=== PATIENT | male | born 1955 | race Caucasian/White ===

== ENCOUNTER → 2017-08-11 15:40 | Outpatient (CLI) | payer OTHER, SELFPAY ==
--- NOTE | 2017-08-11 15:40 | DT_ITS ---
This patient was seen during an EMR downtime August 04, 2017 - August 11, 2017. This patient may have a combination of paper and electronic documentation or all paper documentation. All documentation is viewable within the e-chart portion of [facility] for each patient visit.
[2017-08-11 17:00] LABS: PSA,Total- Diagnostic < 0.01 ng/mL (0.0-4.0)
== END ==
PROVIDERS: Family Provider Family Medicine Geriatric Medicine; PCP Family Medicine Geriatric Medicine; Visit Provider Urology
DX: C61 Malignant neoplasm of prostate (principal)
CPT/HCPCS: 36415; 84153

== ENCOUNTER → 2018-02-10 08:00 | Outpatient (CLI) | payer OTHER, SELFPAY ==
[2018-02-10 08:52] LABS: PSA,Total- Diagnostic < 0.01 ng/mL (0.0-4.0)
--- OUTSIDE RECORDS SUMMARY | 2018-03-29 06:02 | XMS RPT_ITS ---
:1955 Author Organization [facility] Care Team Providers Name Role Phone Yuliana Fleming Attending Unavailable Yuliana Fleming Referring Unavailable Ke, Nick Chi Primary Care Unavailable Marvel Ramirez Attending Unavailable JamesMarvel Referring Unavailable Ke, Nick Chi Primary Care Unavailable Marvel Ramirez Attending Unavailable JamesMarvel Referring Unavailable Ke, Nick Chi Primary Care Unavailable Ke, Nick Chi Attending Unavailable Ke, Nick Chi Primary Care Unavailable Ke, Nick Chi Referring Unavailable PROBLEMS PROBLEMS DATE TYPE CONDITION / CODE ATTENDING STATUS SOURCE 08/28/2017 Unknown C61 - Malignant Marvel Ramirez [employer] neoplasm of [facility] prostate / Hospital C61(ICD-10) Repository PROCEDURES PROCEDURES No Procedure Records FoundRESULTS RESULTS SPINE LUMBAR Observed: 02/23/2018 Status: F Source: [place] (ROUTINE) 2:22 PM [facility] REPOSITORY [facility] Imaging Services [address] [place] [address] Spine Lumbar (Routine) MR#: [id number] Acct: [id number] Name: EDITH ORTIZ Rep #: [id number] : 1955 M 62 From: Deborah Guzman MD PCP: Ke MAGALLANES,Nick Lopez Status: REG CLI Study: Spine Lumbar (Routine) Date of Exam: 02/23/18 Exam# [id number] Ordering Dr: Marvel Ramirez MD STUDY: MRI LUMBAR SPINE WITHOUT CONTRAST REASON FOR EXAM: Male, 62 years old. Low back pain, renal mass. TECHNIQUE: Standardized fat and water weighted pulse sequences were obtained in the sagittal and axial planes. COMPARISON: None FINDINGS: T12-L1: Normal endplates. Normal disc height, hydration and morphology. Normal bilateral facet joints. Normal central canal and bilateral lateral recesses. Normal bilateral intervertebral neural foramina. Normal lumbar lordosis. There is mild dextroscoliosis. Normal conus medullaris that terminates at the T12 level. Marrow signal shows no evidence of acute fracture or neoplastic infiltrate. L1-2: Normal endplates. Normal disc height, hydration and morphology. Normal bilateral facet joints. Normal central canal and bilateral lateral recesses. Normal bilateral intervertebral neural foramina. L2-3: Disc dehydration and moderate disc space narrowing. There is a moderate spondylotic bar. There is mild canal stenosis due to spondylosis, mild facet and ligamentous hypertrophy. There is moderate left foraminal stenosis due to spurring. L3-4: Disc dehydration and marked disc space narrowing. There is a mild spondylotic bar. There is facet and ligamentous hypertrophy. There is significant encroachment of the right lateral recess and moderate right foraminal encroachment due to spurring. There is mild left foraminal encroachment due to spurring. L4-5: Disc dehydration and mild disc space narrowing. Normal central canal. There is mild facet hypertrophy. There is moderate right foraminal stenosis due to spurring and facet hypertrophy. L5-S1: Normal endplates. . Disc dehydration Normal bilateral facet joints. Normal central canal and bilateral lateral recesses. Normal bilateral intervertebral neural foramina. Normal visualized sacral ala. Normal visualized paraspinous soft tissue structures. A right renal mass is noted consistent with clinical history. MRI/Spine Lumbar (Routine) IMPRESSION: 1. Mild L2-3 canal stenosis. 2. Foraminal stenosis at L2-3, L3-4, and L4-5. 3. Mild dextroscoliosis. 4. Degenerative changes are detailed above. 5. Known right renal mass. Electronically Signed: Deborah Guzman MD at 18:49 EST Tel , Service support , CC: Marvel Ramirez MD; Nick Dempsey MD Assistant Professor Of Geography: Signed ABDOMEN/PELVIS WITH Observed: 02/13/2018 Status: F Source: [place] CONTRAST 12:35 PM [facility] REPOSITORY [facility] Imaging Services [address] [place] [address] Abdomen/Pelvis WITH Contrast MR#: [id number] Acct: [id number] Name: EDITH ORTIZ Rep #: [id number] : 1955 M 62 From: Triston Johnston MD PCP: Ke MAGALLANES,Nick Lopez Status: REG CLI Study: Abdomen/Pelvis WITH Contrast Date of Exam: 02/13/18 Exam# [id number] Ordering Dr: Nick Dempsey MD ADDENDUM by Triston Johnston MD on 02/13/18 at 1542 ADDENDUM This is an addendum report. There is a 5.2 cm x 4.5 cm x 5.1 cm inhomogeneously enhancing solid mass in the inferior medial aspect of the right kidney. A neoplastic process should be ruled out. Electronically Signed: Triston Johnston MD at 15:42 EST Tel [phone], Service support , 02/13/18 1542 Date cc: Nick Dempsey MD * Signed ADDENDUM by Triston Johnston MD on 02/13/[address]/Abdomen/Pelvis WITH Contrast 02/13/18 1549 Date cc: Nick Dempsey MD * Signed STUDY: CT ABDOMEN AND PELVIS WITH CONTRAST REASON FOR EXAM: Male, 62 years old. Right-sided abdominal pain with radiation. Patient has a history of a prostate cancer. RADIATION DOSAGE (If Supplied By Facility): CTDIvol = ( 16.33 ) mGy, DLP = ( 1252.88 ) mGycm TECHNIQUE: Transaxial images were obtained from the dome of the diaphragm to the symphysis pubis with oral contrast. 100mL ml of Isovue 300 contrast was administered. Sagittal and coronal images were reconstructed. Individualized dose optimization techniques were used for this CT. COMPARISON: Comparison is made with prior study dated on October 30, 2015. FINDINGS: Minimal degree of increased markings at the lung bases suggestive of linear scarring and/or atelectasis. The visualized portions of the heart are within normal limits. There is decreased attenuation of the liver consistent with steatosis. Slightly distended gallbladder. Normal spleen. Normal pancreas. Normal bilateral adrenal glands. Normal right kidney. Normal left kidney. Normal visualized stomach. Normal small intestine. There are scattered colonic diverticula consistent with diverticulosis. The appendix is visualized and appears normal. There is scattered atherosclerotic calcification of the abdominal aorta, without a demonstrated aneurysm. Normal inferior vena cava. Normal retroperitoneum. Normal urinary bladder. The patient is status post prostatectomy. Small benign-appearing inguinal lymph nodes. There is a small umbilical hernia containing fat. The neck of the hernia measures 1.7 cm. There are diffuse degenerative changes of the visualized lumbar spine. CT/Abdomen/Pelvis WITH Contrast IMPRESSION: Fatty infiltration of the liver. Stable umbilical hernia. Status post prostatectomy. Electronically Signed: Triston Johnston MD at 15:25 EST Tel [phone], Service support , CC: Nick Dempsey MD Assistant Professor Of Geography: Signed CBC W/DIFF, AUTOMATED Collected: 02/13/2018 Status: F Source: [place] 12:01 PM [facility] REPOSITORY TYPE CODE TESTS RESULT OUT OF RANGE REFERENCE UNITS LAB L100.1000 4.4-11.0 K/mm3 Normal WBC 5.5 LAB L100.1200 4.6-6.2 M/mm3 Normal RBC 4.73 LAB L100.1300 13.0-16.5 g/dl Normal HGB 14.2 LAB L100.1400 40-54 % Normal HCT 42.6 LAB L100.1500 80-94 fL Low MCV 9.1 LAB L100.1600 27.0-32.0 pg Normal MCH 30.0 LAB L100.1700 32-36 g/gl Normal MCHC 33.3 LAB L100.1810 11.6-14.6 % Normal RDW CV 12.7 LAB L100.1820 35.1-43.9 fl Normal RDW SD 41.3 LAB L100.1900 150-450 K/mm3 Normal PLT 249 LAB L100.2000 6.2-12.0 fl Normal MPV 10.1 LAB L100.2100 47-70 % Normal NEUT% 56.5 LAB L100.2200 19-41 % Normal LY% 31.9 LAB L100.2300 0-10 % Normal MONO% 9.4 LAB L100.2400 0-5 % Normal EO% 1.5 LAB L100.2500 0-1 % Normal BASO% 0.5 LAB L100.2550 0.0-0.9 % Normal IM GRAN % 0.200 Result Comment: IG% - Immature Granulocytes (promyelocytes, myelocytes and metamyelocytes) > 1% indicates that a LEFT SHIFT is Present. LAB L100.2620 2.0-7.7 X10 3/uL Normal Absolute Neut 3.1 LAB L100.2720 0.83-4.51 X10 3/ul Normal Absolute Lymph 1.76 LAB L100.3100 MANUAL DIFF CELLS Normal COUNTED 0.01 Performed By: #### L100.0100 #### [facility] [address] [place], [place], [address] COMPREHENSIVE METABOLIC Collected: 02/13/2018 Status: F Source: [place] 12:01 PM [facility] REPOSITORY TYPE CODE TESTS RESULT OUT OF RANGE REFERENCE UNITS LAB L501.0100 74-106 mg/dL Normal GLU 98 Result Comment: Please note revised GLUCOSE reference range effective 2017. LAB L501.1000 7-18 mg/dL Normal BUN 18 LAB L501.1100 0.70-1.30 mg/dL Normal CREAT,SERUM 0.77 Result Comment: The validity of the calculated GFR AND GFRAA in patients over 70 years has not been determined. Clinical correlation is essential. LAB L501.1110 >60 mL/min Normal EST GFR 108 Result Comment: Non- GFR Calc LAB L501.1115 >60 mL/min Normal EST GFR - AA 130 Result Comment: GFR Calc LAB L501.1300 10-20 RATIO High BUN/CRE 23.3 LAB L501.1500 6.4-8.2 g/dL T Normal PROT 7.5 LAB L501.1800 3.2-5.0 g/dL Normal ALB 4.1 LAB L501.1950 2.2-4.2 g/dL Normal GLOB 3.4 LAB L501.2000 0.9-2.4 RATIO Normal A/G 1.2 LAB L501.2200 8.5-10.1 mg/dL CA Normal 8.9 LAB L501.4100 15-37 U/L Normal AST 17 LAB L501.4305 45-117 U/L Normal ALK P 53 LAB L501.4405 16-61 U/L Normal ALT 21 LAB L501.4600 0.20-1.00 mg/dL High T BILI 1.20 LAB L501.5300 136-145 mmol/L NA Normal 141 LAB L501.5600 3.5-5.1 mmol/L K Normal 4.2 LAB L501.5900 98-107 mmol/L CL Normal 104 LAB L501.6100 21.0-32.0 mmol/L Normal CO2 30.0 LAB L501.6200 5-15 Normal GAP 7 Performed By: #### L500.4050 #### [facility] [address] [place], [address] PSA,TOTAL- DIAGNOSTIC Collected: 02/10/2018 Status: F Source: [place] 8:05 AM [facility] REPOSITORY TYPE CODE TESTS RESULT OUT OF RANGE REFERENCE UNITS LAB L501.9940 0.0-4.0 ng/mL PSA, Normal DIAGNOSTIC < 0.01 Result Comment: This test was performed using the TPSA assay method for the apartum chemistry system. Values obtained with different assay methods cannot be used interchangably. When changing PSA assays in the course of monitoring a patient, additional sequential testing should be carried out to confirm baseline values. Performed By: #### L501.9940 #### [facility] [address] [place], [address] DOWNTIME REPORT Observed: 08/21/2017 Status: F Source: [place] 2:16 PM [facility] Medical Records Department [address] [place] [address] Downtime Report MR#: [id number] Acct: [id number] Name: EDITH ORTIZ Rep #: [id number] : 1955 62 From: Andrzej Medina PCP: Nick Dempsey MD, Chi Status: REG CLI This patient was seen during an EMR downtime August 04, 2017 - August 11, 2017. This patient may have a combination of paper and electronic documentation or all paper documentation. All documentation is viewable within the e-chart portion of [employer] for each patient visit. PSA,TOTAL- DIAGNOSTIC Collected: 08/11/2017 Status: F Source: [place] 3:42 PM [facility] REPOSITORY TYPE CODE TESTS RESULT OUT OF RANGE REFERENCE UNITS LAB L501.9940 0.0-4.0 ng/mL PSA, Normal DIAGNOSTIC < 0.01 Result Comment: This test was performed using the TPSA assay method for the apartum chemistry system. Values obtained with different assay methods cannot be used interchangably. When changing PSA assays in the course of monitoring a patient, additional sequential testing should be carried out to confirm baseline values. Performed By: #### L501.9940 #### [facility] [address] [place], [address] ALLERGIES ALLERGIES No Allergies Records FoundENCOUNTERS ENCOUNTERS ADMIT/DISCHARGE ACCOUNT ADMITTING ENCOUNTER LOCATION SOURCE NUMBER CLASS 02/23/2018 [id number] [facility] [place] [facility] ing:MRI Repository 02/13/2018 [id number] Ambulatory [place] 3 [facility] ing:CT Repository 02/10/2018 [id number] Ambulatory [place] [facility] ing:LAB Repository 08/11/2017 [id number] Ambulatory [place] 2 [facility] ing:LAB Repository PAYERS PAYERS ENCOUNTER GUARANTOR PAYER SUBSCRIBER SOURCE 02/23/2018 EDITH Oliva Primary EDITH Jean [id number] Insurance:[facility]: [address] [id number] Number: Repository [id number]: [phone] [id number] [phone] () Date:4824-06-26GK [place] [id number]: 02/23/2018 Secondary NOT GIVENUNK Ted Insurance:SELF PAY [facility] Number: Effective Repository Date:2018-02-17 02/13/2018 EDITH Oliva Primary EDITH Jean [id number] Insurance:[facility]: [address] [id number] Number: Repository [address]Rez: [phone] [id number] [phone] () Date:[id number] [address]EV: 02/13/2018 Secondary NOT GIVENUNK [place] Insurance:SELF PAY [facility] Number: Effective Repository Date:2018-02-13 02/10/2018 EDITH Oliva Primary EDITH Jean [id number] Insurance:[facility]: [address] [id number] [place] [address] Number: Repository [id number]: [phone] [phone] () Date:4448-32-32[address] [address]RI: 02/10/2018 Secondary NOT GIVENUNK Ted Insurance:SELF PAY [facility]: Effective Repository Date:2018-02-10 08/11/2017 Edith Pj Primary Edith Pj Ted [id number] [facility] [id number]: Repository [id number]: [phone] [id number] [phone] () Date:4082-73-15[address], [place] [address]XT: 08/11/2017 Secondary NOT GIVENUNK [place] Insurance:SELF PAY [facility] Number: Effective Repository Date:2017-08-11
== END ==
PROVIDERS: Family Provider Family Medicine Geriatric Medicine; PCP Family Medicine Geriatric Medicine; Referring Provider Nurse Practitioner Adult Health; Visit Provider Nurse Practitioner Adult Health
DX: C61 Malignant neoplasm of prostate (principal)
CPT/HCPCS: 36415; 84153

== ENCOUNTER → 2018-02-13 12:00 | Outpatient (CLI) | payer OTHER, SELFPAY ==
--- NOTE | 2018-02-13 12:35 | CT_ITS ---
STUDY: CT ABDOMEN AND PELVIS WITH CONTRAST REASON FOR EXAM: Male, 62 years old. Right-sided abdominal pain with radiation. Patient has a history of a prostate cancer. RADIATION DOSAGE (If Supplied By Facility): CTDIvol = ( 16.33 ) mGy, DLP = ( 1252.88 ) mGycm TECHNIQUE: Transaxial images were obtained from the dome of the diaphragm to the symphysis pubis with oral contrast. 100mL ml of Isovue 300 contrast was administered. Sagittal and coronal images were reconstructed. Individualized dose optimization techniques were used for this CT. COMPARISON: Comparison is made with prior study dated on October 30, 2015. FINDINGS: Minimal degree of increased markings at the lung bases suggestive of linear scarring and/or atelectasis. The visualized portions of the heart are within normal limits. There is decreased attenuation of the liver consistent with steatosis. Slightly distended gallbladder. Normal spleen. Normal pancreas. Normal bilateral adrenal glands. Normal right kidney. Normal left kidney. Normal visualized stomach. Normal small intestine. There are scattered colonic diverticula consistent with diverticulosis. The appendix is visualized and appears normal. There is scattered atherosclerotic calcification of the abdominal aorta, without a demonstrated aneurysm. Normal inferior vena cava. Normal retroperitoneum. Normal urinary bladder. The patient is status post prostatectomy. Small benign-appearing inguinal lymph nodes. There is a small umbilical hernia containing fat. The neck of the hernia measures 1.7 cm. There are diffuse degenerative changes of the visualized lumbar spine. CT/Abdomen/Pelvis WITH Contrast IMPRESSION: Fatty infiltration of the liver. Stable umbilical hernia. Status post prostatectomy. Electronically Signed: Triston Johnston MD at 15:25 EST Tel [phone], Service support ,
[2018-02-13 12:37] LABS: Absolute Neutrophil Count 3.1 X10^3/uL (2.0-7.7); Basophil% 0.5 % (0-1); Eosinophils% 1.5 % (0-5); Hematocrit 42.6 % (40-54); Hemoglobin 14.2 g/dl (13.0-16.5); Lymphocyte # 1.76 X10^3/ul (4.0); Lymphocyte % 31.9 % (19-41); Mean Corp Hgb Conc 33.3 g/gl (32-36); Mean Corpuscular Volume 9.1 fL (80-94); Mean Platelet Vol. 10.1 fl (6.2-12.0); Monocyte% 9.4 % (0-10); Neutrophil # 3.11 X10^3/uL (2.7-7.7); Neutrophil % 56.5 % (47-70); Platelet Count 249 K/mm3 (150-450); RBC Distribution Width CV 12.7 % (11.6-14.6); RBC Distribution Width SD 41.3 fl (35.1-43.9); Red Blood Count 4.73 M/mm3 (4.6-6.2); White Blood Count 5.5 K/mm3 (4.4-11.0)
[2018-02-13 12:38] LABS: Absolute Lymphocyte Count 1.76 X10^3/ul (0.83-4.51); Basophil# 0.03 X10^3/uL; Eosinophil# 0.08 X10^3/uL; Monocyte# 0.52 X10^3/uL; Total Cells Counted 0.01 (MANUAL DIFF)
[2018-02-13 12:43] LABS: ALB/GLOB Ratio 1.2 RATIO (0.9-2.4); AST(SGOT) 17 U/L (15-37); Alanine Aminotransfer ALT/SGPT 21 U/L (16-61); Albumin, Serum 4.1 g/dL (3.2-5.0); Alkaline Phosphatase 53 U/L (45-117); Anion Gap 7 (5-15); BUN 18 mg/dL (7-18); BUN/Creat Ratio 23.3 RATIO (10-20); Calcium,Total 8.9 mg/dL (8.5-10.1); Chloride 104 mmol/L (98-107); Creatinine, Serum 0.77 mg/dL (0.70-1.30); EST Glomerular Filtration Rate 108 mL/min (>60); Est Glom Filt Rate - Afr Amer 130 mL/min (>60); Globulin 3.4 g/dL (2.2-4.2); Glucose 98 mg/dL (74-106); Potassium 4.2 mmol/L (3.5-5.1); Protein, Total 7.5 g/dL (6.4-8.2); Sodium Level 141 mmol/L (136-145)
--- OUTSIDE RECORDS SUMMARY | 2018-04-01 06:37 | XMS RPT_ITS ---
:1955 Author Organization OHIP Care Team Providers Name Role Phone Yuliana Fleming Attending Unavailable Yuliana Fleming Referring Unavailable Ke, Nick Chi Primary Care Unavailable Ke, Nick Chi Attending Unavailable Ke, Nick Chi Primary Care Unavailable Ke, Nick Chi Referring Unavailable Marvel Ramirez Attending Unavailable JamesMarvel Referring Unavailable Ke, Nick Chi Primary Care Unavailable JamesMarvel Attending Unavailable JamesMarvel Referring Unavailable Ke, Nick Chi Primary Care Unavailable PROBLEMS PROBLEMS DATE TYPE CONDITION / CODE ATTENDING STATUS SOURCE 08/28/2017 Unknown C61 - Malignant Marvel Ramirez Active [place] neoplasm of [facility] prostate / Hospital C61(ICD-10) Repository PROCEDURES PROCEDURES No Procedure Records FoundRESULTS RESULTS SPINE LUMBAR Observed: 02/23/2018 Status: F Source: [place] (ROUTINE) 2:22 PM [facility] HOSPITAL REPOSITORY [facility] Imaging Services [address] [place] [address] Spine Lumbar (Routine) MR#: [id number] Acct: [id number] Name: EDITH ORTIZ Rep #: [id number] : 1955 M 62 From: Deborah Guzman MD PCP: Ke MAGALLANES,Nick Lopez Status: REG CLI Study: Spine Lumbar (Routine) Date of Exam: 02/23/18 Exam# [id number] Ordering Dr: Marvel Ramirez MD STUDY: MRI [...] CC: Marvel Ramirez MD; Nick Dempsey MD Wagon Driver: Signed ABDOMEN/PELVIS WITH Observed: 02/13/2018 Status: F Source: [place] CONTRAST 12:35 PM [facility] REPOSITORY [facility] Imaging Services [address] [place] [address] Abdomen/Pelvis WITH Contrast MR#: [id number] Acct: [id number] Name: EDITH ORTIZ Rep #: [id number] : 1955 M 62 From: Triston Johnston MD PCP: Ke MAGALLANES,Nick Lopez Status: REG CLI Study: Abdomen/Pelvis WITH Contrast Date of Exam: 02/13/18 Exam# [id number] Ordering Dr: Nick Dempsey MD ADDENDUM by Triston Johnston MD on 02/13/18 at 1542 ADDENDUM This is an addendum report. There is a 5.2 cm x 4.5 cm x 5.1 cm inhomogeneously enhancing solid mass in the inferior medial aspect of the right kidney. A neoplastic process should be ruled out. Electronically Signed: Triston Johnston MD at 15:42 EST Tel [phone], Service support , 02/13/18 1542 Date cc: [...] Triston Johnston MD at 15:25 EST Tel [phone], Service support , CC: Nick Dempsey MD Wagon Driver: Signed CBC W/DIFF, AUTOMATED Collected: 02/13/2018 Status: F Source: [place] 12:01 PM [facility] REPOSITORY TYPE CODE TESTS RESULT OUT OF [...] COUNTED 0.01 Performed By: #### L100.0100 #### [facility] Laboratory [address] [place], [place], [address] COMPREHENSIVE METABOLIC Collected: 02/13/2018 Status: F Source: [place] ADAME 12:01 PM [facility] REPOSITORY TYPE CODE TESTS RESULT OUT OF [...] GAP 7 Performed By: #### L500.4050 #### [facility] [address] [place], [address] PSA,TOTAL- DIAGNOSTIC Collected: 02/10/2018 Status: F Source: [place] 8:05 AM [facility] REPOSITORY TYPE CODE TESTS RESULT OUT OF RANGE REFERENCE UNITS LAB L501.9940 0.0-4.0 ng/mL PSA, Normal DIAGNOSTIC < 0.01 Result Comment: This test was performed using the TPSA assay method for the [employer] chemistry system. Values obtained with different assay methods cannot be used interchangably. When changing PSA assays in the course of monitoring a patient, additional sequential testing should be carried out to confirm baseline values. Performed By: #### L501.9940 #### [facility] [address] [facility] [place], [address] DOWNTIME REPORT Observed: 08/21/2017 Status: F Source: [place] 2:16 PM [facility] Medical Records Department [address] [place] [address] Downtime Report MR#: [id number] Acct: [id number] Name: EDITH ORTIZ Rep #: [id number] : 1955 62 From: Andrzej Medina PCP: Nick Dempsey MD, Chi Status: REG CLI This patient was seen during an EMR downtime August 04, 2017 - August 11, 2017. This patient may have a combination of paper and electronic documentation or all paper documentation. All documentation is viewable within the e-chart portion of [employer] for each patient visit. PSA,TOTAL- DIAGNOSTIC Collected: 08/11/2017 Status: F Source: [place] 3:42 PM [facility] REPOSITORY TYPE CODE TESTS RESULT OUT OF RANGE REFERENCE UNITS LAB L501.9940 0.0-4.0 ng/mL PSA, Normal DIAGNOSTIC < 0.01 Result Comment: This test was performed using the TPSA assay method for the [employer] chemistry system. Values obtained with different assay methods cannot be used interchangably. When changing PSA assays in the course of monitoring a patient, additional sequential testing should be carried out to confirm baseline values. Performed By: #### L501.9940 #### [facility] [address] [facility] [place], [address] ALLERGIES ALLERGIES No Allergies Records FoundENCOUNTERS ENCOUNTERS ADMIT/DISCHARGE ACCOUNT ADMITTING ENCOUNTER LOCATION SOURCE NUMBER CLASS 02/23/2018 [id number] Ambulatory [place] 0 [facility] ing:MRI Repository 02/13/2018 [id number] Ambulatory [place] 3 [facility] ing:CT Repository 02/10/2018 [id number] Ambulatory [place] 3 [facility] ing:LAB Repository 08/11/2017 [id number] Ambulatory [place] 2 [facility] ing:LAB Repository PAYERS PAYERS ENCOUNTER GUARANTOR PAYER SUBSCRIBER SOURCE 02/23/2018 EDITH Oliva Primary EDITH Jean [id number] Insurance:[facility]: [address] [id number] Number: Repository [id number]: [phone] [id number] [phone] () Date:[id number] [place] [id number]: 02/23/2018 Secondary NOT GIVENUNK [place] Insurance:SELF PAY [facility] Number: Effective Repository Date:2018-02-17 02/13/2018 EDITH Oliva Primary EDITH Jean [id number] Insurance:[facility]: [address] [id number] Number: Repository [id number]: [phone] [id number] [phone] () Date:[id number] [address]KH: 02/13/2018 Secondary NOT GIVENUNK [place] Insurance:SELF PAY [facility] Number: Effective Repository Date:2018-02-13 02/10/2018 EDITH Oliva Primary EDITH Jean [id number] Insurance:[facility]: [address] [id number] [place] [address] Number: Repository [id number]: [phone] [id number] [phone] () Date:0112-07-82[address], [place] [address]EP: 02/10/2018 Secondary NOT GIVENUNK [place] Insurance:SELF PAY [facility] Number: Effective Repository Date:2018-02-10 08/11/2017 Edith Pj Primary Edith Pj [place] [id number] [facility] [address]Aojkrp [id number] Repository [id number]: [phone] [id number] [phone] () Date:9319-26-45ME [address], [place] [address]CR: 08/11/2017 Secondary NOT GIVENUNK [place] Insurance:SELF PAY [facility] Number: Effective Repository Date:2017-08-11
== END ==
PROVIDERS: Family Provider Family Medicine Geriatric Medicine; PCP Family Medicine Geriatric Medicine; Referring Provider Family Medicine Geriatric Medicine; Visit Provider Family Medicine Geriatric Medicine
DX: R10.9 Unspecified abdominal pain (principal)
CPT/HCPCS: 36415; 74177; 80053; 85025; Q9967

== ENCOUNTER → 2018-02-23 13:55 | Outpatient (CLI) | payer OTHER, SELFPAY ==
--- NOTE | 2018-02-23 14:22 | MRI_ITS ---
STUDY: MRI LUMBAR SPINE WITHOUT CONTRAST REASON FOR EXAM: Male, 62 years old. Low back pain, renal mass. TECHNIQUE: Standardized fat and water weighted pulse sequences were obtained in the sagittal and axial planes. COMPARISON: None FINDINGS: T12-L1: Normal endplates. Normal disc height, hydration and morphology. Normal bilateral facet joints. Normal central canal and bilateral lateral recesses. Normal bilateral intervertebral neural foramina. Normal lumbar lordosis. There is mild dextroscoliosis. Normal conus medullaris that terminates at the T12 level. Marrow signal shows no evidence of acute fracture or neoplastic infiltrate. L1-2: Normal endplates. Normal disc height, hydration and morphology. Normal bilateral facet joints. Normal central canal and bilateral lateral recesses. Normal bilateral intervertebral neural foramina. L2-3: Disc dehydration and moderate disc space narrowing. There is a moderate spondylotic bar. There is mild canal stenosis due to spondylosis, mild facet and ligamentous hypertrophy. There is moderate left foraminal stenosis due to spurring. L3-4: Disc dehydration and marked disc space narrowing. There is a mild spondylotic bar. There is facet and ligamentous hypertrophy. There is significant encroachment of the right lateral recess and moderate right foraminal encroachment due to spurring. There is mild left foraminal encroachment due to spurring. L4-5: Disc dehydration and mild disc space narrowing. Normal central canal. There is mild facet hypertrophy. There is moderate right foraminal stenosis due to spurring and facet hypertrophy. L5-S1: Normal endplates. . Disc dehydration Normal bilateral facet joints. Normal central canal and bilateral lateral recesses. Normal bilateral intervertebral neural foramina. Normal visualized sacral ala. Normal visualized paraspinous soft tissue structures. A right renal mass is noted consistent with clinical history. MRI/Spine Lumbar (Routine) IMPRESSION: 1. Mild L2-3 canal stenosis. 2. Foraminal stenosis at L2-3, L3-4, and L4-5. 3. Mild dextroscoliosis. 4. Degenerative changes are detailed above. 5. Known right renal mass. Electronically Signed: Deborah Guzman MD at 18:49 EST Tel , Service support ,
== END ==
PROVIDERS: Family Provider Family Medicine Geriatric Medicine; PCP Family Medicine Geriatric Medicine; Referring Provider Urology; Visit Provider Urology
DX: M54.5 Low back pain (principal); N28.89 Other specified disorders of kidney and ureter
CPT/HCPCS: 72148

== ENCOUNTER 2018-05-06 10:55 | Inpatient (IN) | payer OTHER, SELFPAY ==
[2018-04-27 11:14] VITALS: BP 146/83; PULSE 59; RESP 18; TEMP 36.7; O2SAT 97; BMI 31.7
--- NOTE | 2018-04-27 11:25 | SDCEKG_ITS ---
Test Reason : Blood Pressure : / mmHG Vent. Rate : 054 BPM Atrial Rate : 054 BPM P-R Int : 238 ms QRS Dur : 106 ms QT Int : 424 ms P-R-T Axes : 037 051 037 degrees QTc Int : 402 ms Sinus bradycardia with 1st degree A-V block Otherwise normal ECG Confirmed by ESTEFANY MAGALLANES, YESENIA ([id number]), social media editor OLIVIA HDEZ ([id number]) on 04/29/2018 10:17:53 AM Referred By: Marvel Ramirez Confirmed By:YESENIA ALLISON MD
[2018-04-27 12:33] LABS: Absolute Lymphocyte Count 1.69 X10^3/ul (0.83-4.51); Absolute Neutrophil Count 4.9 X10^3/uL (2.0-7.7); Basophil# 0.02 X10^3/uL; Basophil% 0.3 % (0-1); Eosinophil# 0.07 X10^3/uL; Hematocrit 41.1 % (40-54); Hemoglobin 13.5 g/dl (13.0-16.5); Lymphocyte # 1.69 X10^3/ul (4.0); Lymphocyte % 23.5 % (19-41); Mean Corp Hgb Conc 32.8 g/gl (32-36); Mean Corpuscular Hgb 30.3 pg (27.0-32.0); Mean Corpuscular Volume 92.4 fL (80-94); Monocyte# 0.45 X10^3/uL; Monocyte% 6.3 % (0-10); Neutrophil # 4.94 X10^3/uL (2.7-7.7); Neutrophil % 68.8 % (47-70); Platelet Count 246 K/mm3 (150-450); RBC Distribution Width CV 13.3 % (11.6-14.6); RBC Distribution Width SD 44.9 fl (35.1-43.9); Red Blood Count 4.45 M/mm3 (4.6-6.2); White Blood Count 7.2 K/mm3 (4.4-11.0)
[2018-04-27 12:37] LABS: POSITIVE COUNT NO; POSITIVE DIFFERENTIAL NO; POSITIVE MORPHOLOGY NO
[2018-04-27 12:45] LABS: BUN 17 mg/dL (7-18); Creatinine, Serum 0.78 mg/dL (0.70-1.30); EST Glomerular Filtration Rate 107 mL/min (>60); Estimated Creatinine Clearance 108.13 ml/min; Glucose 91 mg/dL (74-106)
[2018-04-27 12:46] LABS: Anion Gap 7 (5-15); BUN/Creat Ratio 21.8 RATIO (10-20); Calcium,Total 8.9 mg/dL (8.5-10.1); Chloride 104 mmol/L (98-107); Est Glom Filt Rate - Afr Amer 129 mL/min (>60); Potassium 4.1 mmol/L (3.5-5.1); Sodium Level 141 mmol/L (136-145)
[2018-05-06] VITALS (12 sets, daily range): BP systolic 116–148; BP diastolic 53–80; PULSE 52–73; RESP 14–20; TEMP 36.2–36.8; O2SAT 95–100; BMI 31.7
--- NOTE | 2018-05-06 | KID_PTH ---
PATIENT: EDITH ORTIZ LOC: MS2 U#:[id number] AGE/SX: 63/M [facility] RE05/06/[address]: Dr. Marvel Ramirez MD : 1955 BED: 1 DIS: 05/08/2018 SPEC #: [id number] RECD: 05/06/18 10:38 STATUS: SHAUNA REBatsheva #: [id number] GIOVANNA: 05/06/18 00:[address]: Marvel Ramirez DEPT: SURGICAL PATHOLOGY RECD BY: Theodora Alonzo ENTERED: 05/06/18 11:37 SP TYPE: KIDNEY OTHR DR: Dr. Nick Dempsey MD Tissues: Kidney, NOS Procedures: Frozen Section (charge) Surgery Specimen Level V HEADER OPERATION: Right lap robotic nephrectomy PRE-OP DIAGNOSIS: Neoplasm right kidney TISSUE SUBMITTED: Right kidney FROZEN SECTION DIAGNOSIS Right kidney, nephrectomy: Clear cell renal cell carcinoma. AM:carlos 05/06/18 MICROSCOPIC DIAGNOSIS Right kidney, radical nephrectomy: Clear cell renal cell carcinoma. See cancer checklist below. AM:carlos 05/08/18 COMMENT KIDNEY CANCER SUMMARY: Procedure - radical nephrectomy Specimen laterality - right kidney Tumor site - middle Tumor size - 5.5 x 4 x 3 cm Tumor focality - unifocal Macroscopic extent of tumor - tumor limited to kidney Histologic type - clear cell renal cell carcinoma Sarcomatoid features - not identified Tumor necrosis - not identified Histologic grade (Ellen nuclear grade) - G2 Microscopic extent of tumor - tumor limited to kidney Margins - uninvolved by invasive carcinoma Lymph-Vascular invasion - not identified Other findings - mild arterionephrosclerosis Lymph nodes - not present PATHOLOGIC STAGE: pT1 Nx Mx The above summary is in compliance with [employer] [place] [employer] (CAP) Cancer Protocols Checklist and [place] Joint Committee on Cancer (AJCC), Staging Manual, 8th Ed. MICROSCOPIC DESCRIPTION Slides are reviewed. GROSS DESCRIPTION Received fresh for frozen section consultation labeled with the patient's name is a specimen designated right kidney. The specimen consists of a specimen of a kidney surrounded by fibrofatty tissue measuring 22 x 10 x 8.5 cm and containing a kidney measuring 13 x 8 x 5 cm. The specimen is aggregate weighs 538 gm. Sectioning of the kidney reveals a mass that does not extend into the perirenal fat and is not present in the soft tissue margin of resection. The mass involves the mid portion of the kidney. Dissection of the renal veins particularly those draining the area of the mass do not show intravascular presence of neoplasm. On sectioning, the mass is roughly spherical and measures 5.5 x 4 x 3 cm. It is composed of yellow, kaminski, brown and white tissue in which there are foci of softening and hemorrhage. The tumor does not invade the pelvicalyceal system and is not present in the renal sinus. The tumor is sharply demarcated from the renal parenchyma which appears essentially unremarkable. Satellite nodules of tumor are not present. The adrenal gland is not present. A 4 cm segment of ureter is present and is grossly free of neoplasm. A business center representative section of the tumor is submitted for frozen section consultation in one block (cassette 1). No lymph nodes are identified in the renal sinus. Community Engagement Manager sections are submitted as follows: 2 - vascular tissue at margin of resection, 3 - ureter at margin of resection, 4 - tumor with perinephric fat, 5 & 6 - tumor with adjacent uninvolved kidney, 7 & 8 - additional sections of tumor, 9 - renal pelvis, 10 - renal sinus, 11 - uninvolved kidney. / AM:carlos 05/07/18 TC:0 CPT: 54788, 14008
[2018-05-06] MEDS: Cefazolin 2 GM in 0.9% Normal Saline 100 ML IV (07:28)
--- NOTE | 2018-05-06 07:33 | HP.PCM_ITS ---
History and Physical Date of Admission: 05/06/18 62 yo male with back pain very severe back pain ct scan was done showed as large mass 6cm in size in the lower pole of right kidney posterior, going to middle of kidney. 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 Pre op PSA 7.49, - 2010 ? Giorgio Score: 7 (4+3) ? Clinical Staging: [id number] Elevated prostate specific antigen [PSA] - 2015, - 2015 Erectile dysfunction following radical prostatectomy - 2015, - 2015 Male erectile dysfunction, unspecified - 2014, - 2013, - 2012, - 2011 Personal history of malignant neoplasm of prostate - 2014, - 2012 NON- PMH: Neoplasm of uncertain behavior of kidney - 02/17/2018 Hyperlipidemia, unspecified Personal history of irradiation Immunizations: None FAMILY HISTORY: Leukemia - Mother SOCIAL HISTORY: Marital Status: Preferred Language: Slovenian; Ethnicity: Not Or ; Race: White Current Smoking Status: Patient has never smoked. Tobacco Use Assessment Completed: Used Smokeless in last 30 days? Smoking cessation counseling was provided. Does not use smokeless tobacco. Does not drink anymore. Does not use drugs. Does not drink caffeine. Has not had a blood transfusion. REVIEW OF SYSTEMS: Constitutional: Patient denies fever, chills, weight loss, and weight gain. Eyes: Patient denies blurry vision, cataracts, and glaucoma. Ears, Nose, Mouth, Throat: Patient denies hearing loss, sinus infections, and sleep apnea. Cardiovascular: Patient denies chest pains, swollen ankles, irregular heartbeat, and pacemaker/defib. Respiratory: Patient denies shortness of breath, wheezing, oxygen, and cpap machine. Gastrointestinal: Patient denies abdominal pain, diarrhea, constipation, nausea, and vomiting. Genitourinary: Patient denies frequent urination, urinary retention, get up at night to void, leakage of urine, painful urination, blood in the urine, frequent uti's, history of stones, difficulty starting stream, weak stream/scanty, and bedwetting. Musculoskeletal: Patient reports back pain. Patient denies sore muscles and gout. Integumentary/Skin: Patient denies rash, skin cancer, and chronic itching. Neurological: Patient denies paralysis, stroke/tia, and falling/unsteady. Hematologic/Lymphatic: Patient denies abnormal bleeding, blood transfusion, swollen lymph nodes, deep venous thrombosis, and pulmonary embolism. Notes: Reviewed previous review of systems 03/09/2018. No changes. VITAL SIGNS: 04/27/2018 10:27 AM Weight 235 lb / 106.59 kg Height 73 in / 185.42 cm BP 136/72 mmHg BMI 31.0 kg/m? - BMI Counseling was provided. MULTI-SYSTEM PHYSICAL EXAMINATION: Constitutional: Well-nourished. No physical deformities. Normally developed. Good grooming. Neck: Neck symmetrical, not swollen. Normal tracheal position. Respiratory: No labored breathing, no use of accessory muscles. Cardiovascular: Normal temperature, normal extremity pulses, no swelling, no varicosities. Lymphatic: No enlargement of neck, axillae, groin. Skin: No paleness, no jaundice, no cyanosis. No lesion, no ulcer, no rash. Neurologic / Psychiatric: Oriented to time, oriented to place, oriented to person. No depression, no anxiety, no agitation. Gastrointestinal: No mass, no tenderness, no rigidity, non obese abdomen. Eyes: Normal conjunctivae. Normal eyelids. Ears, Nose, Mouth, and Throat: Left ear no scars, no lesions, no masses. Right ear no scars, no lesions, no masses. Nose no scars, no lesions, no masses. Normal hearing. Normal lips. Musculoskeletal: Normal gait and station of head and neck. PAST DATA REVIEWED: Source Of History: Patient 02/10/18 08/11/17 12/16/16 06/10/16 08/29/15 08/15/14 01/25/14 02/15/13 PSA Total PSA < 0.01 ng/mL < 0.01 ng/mL < 0.01 ng/mL < 0.01 ng/mL 0.25 ng/mL 0.21 ng/ml 0.24 0.15 Notes [facility] [address] [place], [place], [id number] This test was performed using the TPSA assay method for the [employer] chemistry system. Values obtained with different assay methods cannot be used interchangably. When changing PSA assays in the course of monitoring a patient, additional sequential testing should be carried out to confirm baseline values. [facility] [address] [place], [address] This test was performed using the TPSA assay method for the [employer] chemistry system. Values obtained with different assay methods cannot be used interchangably. When changing PSA assays in the course of monitoring a patient, additional sequential testing should be carried out to confirm baseline values. [facility] [address] [place], [address] This test was performed using the TPSA assay method for the [employer] chemistry system. Values obtained with different assay methods cannot be used interchangably. When changing PSA assays in the course of monitoring a patient, additional sequential testing should be carried out to confirm baseline values. [facility] [address] [place], [address] This test was performed using the TPSA assay method for the [employer] chemistry system. Values obtained with different assay methods cannot be used interchangably. When changing PSA assays in the course of monitoring a patient, additional sequential testing should be carried out to confirm baseline values. [facility] [address] [place], [address] [phone] This test was performed using the TPSA assay method for the [employer] chemistry system. Values obtained with different assay methods cannot be used interchangably. When changing PSA assays in the course of monitoring a patient, additional sequential testing should be carried out to confirm baseline values. Test performed at: [facility] [address] [place], [place] [id number] This test was performed using the TPSA assay method for the [employer] chemistry system. Values obtained with different assay methods cannot be used interchangably. When changing PSA assays in the course of monitoring a patient, additional sequential testing should be carried out to confirm baseline values. PROCEDURES: Urinalysis - [address] Dipstick Dipstick Cont'd Specimen: Voided Blood: Neg Appearance: Clear pH: 5.0 Color: Yellow Protein: Neg Glucose: Normal Urobilinogen: Neg Bilirubin: Neg Nitrites: Neg Ketones: Neg Leukocyte Esterase: Neg ASSESSMENT: ICD-10 Details 1 : Neoplasm of uncertain behavior of right kidney - D41.01 2 Malignant neoplasm of prostate - C61 PLAN: Schedule Procedure: Unspecified Date - Robotic Partial Nephrectomy - 54224, right Document Letter(s): Created for Patient: Clinical Summary The risks, benefits, and some of the possible complications of the proposed procedure were discussed with the patient at length and in detail including the possible need to do an open radical nephrectomy. The possibility of having a positive tissue margin as well as the possible need for further surgical procedures was discussed with the patient. The possible need for postoperative treatments including further surgical procedures, chemotherapy, immunotherapy, radiation therapy, and others was discussed with the patient. The possibility that this operative procedure might not to cure the underlying disease, that micrometastatic disease might already be present, and that this underlying dise ase might result in the of the patient was discussed. The general risks of the operative procedure and the perioperative period were discussed with the patient at length and in detail including swelling, pain, nausea, vomiting, fever, chills, infection, wound infection, sepsis, renal failure, internal or external bleeding, intraoperative bowel, organ or vascular injuries, postoperative formation of scar tissue, the need for blood transfusions, deep venous thrombosis or blood clots, pulmonary embolus, pneumonia, respiratory failure, heart attack, stroke, and others. All of the patient's questions were answered and he voiced an understanding of these risks, benefits and possible complications. The patient gave fully informed consent to proceed with the procedure. Notes: plan to proceed with right partial nephrectomy possible total nephrectomy bowel prep instructions given
[2018-05-06] MEDS: Bupivacaine Mpf 0.5% 30 ML VIAL (08:02)
--- NOTE | 2018-05-06 11:00 | PCM.OPRPT ---
Report of Operation Date of Procedure: 05/06/18 Pre-Operative Diagnosis: Large 6 cm right renal mass Post-Operative Diagnosis: Same, renal cell carcinoma Surgery/Procedure Performed:: Laparoscopic robotic assisted right radical nephrectomy Description of Surgical Findings:: 63-year-old male who I saw in the office a few weeks ago with a large mass in the right kidney the mass is about 6 cm in size posterior lower pole but extending deep into the hilum of the kidney, we talked about doing an elective partial nephrectomy versus a complete nephrectomy given the size of the mass we talked about both options this would be an intra-intraoperative decision based on how the tumor looks and also the complexity of the resection. 63-year-old male taken back to the operating room at the smooth induction of general anesthesia he was placed supine on the table we then placed him in full flank with the table flexed the arm straight across the body catheter was placed the abdomen was shaved prepped and draped in usual sterile fashion we had him on the right lateral side with the right side up, axillary roll in place all pressure points padded. I then marked the abdomen for an approach robotic approach to the right side, infiltrated the skin with lidocaine make a small 5 mm incision and introduced the Veress needle into the peritoneal cavity insufflated the peritoneal cavity with CO2 gas, we then placed our camera trocar and immediately recognized extensive amount of adhesions he had prior surgeries he had prior appendectomy prior prostatectomy had a lot of anterior adhesions these I placed my right robotic arm and I then used my cold scissors to initially take down a lot of these adhesions before docked the robot. After taking down all these anterior adhesions then I placed my left robotic arm and then my left second arm. We then placed an air seal port. For the section and also for the anatomic pathology assistant and also to hold pneumoperitoneum. Started by dissecting the scar tissue on the lateral wall of the peritoneal, and the body. Dissected the colon off the off the kidney reflected the white line of Toldt and is a reflected the colon identified Gerota's fascia dissected to [address] fascia all the way up past the liver superiorly of the of the kidney I then as is reflecting the colon off the kidney identified the vena cava and then identified the gonadal vessels and the ureter this was then elevated up using the graptor arm on the robot and then dissected along the vena cava very carefully came across artery was bleeding at the clamp this with a clip using a wet lock clip and then came across the gonadal vein I took the gonadal vein with clips and then as I worked my way posterior to the kidney I encountered the large renal artery renal vein was not identified at this point renal artery was circumferentially dissected out this point we will still consider doing a partial nephrectomy we then performed ultrasonography of the kidney and interpreted the images could see a large tumor going posterior in the lower part of the kidney extending away into the hilum. Spent another 20 minutes today ultrasonography of the kidney and at this point decided electively to proceed with a radical nephrectomy family was called and notified of the of the plan of surgery so at this point went back down to the artery put 2 clips down and one clip up with a Weck clips and transected the artery I then dissected further up until I came upon the renal vein next to the renal vein was another small branch of the artery this was clipped 2 clips down and one clip up and transected and the renal vein was then transected 2 clips up to 1.1 clip up transected the vein of the adrenal gland was then spared peeling off the upper pole of the right kidney placed some Surgicel on the adrenal gland as there was some minor oozing from the adrenal gland bed I then dissected superiorly until I got to the attachments between the kidney and the liver these were then dissected free with electrocautery we then rolled the kidney off the lateral sidewall dissecting the kidney off the sidewalk sling completely out of Gerota's fascia. My the reason for doing up total nephrectomy was a concern that this tumor appeared to be invading into the fat around the kidney just on ultrasound ultrasonography did not appear to be a strict nice capsule that I can identify so is very concerned about invasion into the fat dissected on the lateral wall free of the kidney mobilized off the lateral wall I then came across the pedicle of the introitus fascia and the came across the gonadal vein clipped this and ligated came across the ureter to clip this and ligated and then dissected inferiorly until the kidney was completely free I then rolled the kidney free we undocked the robot this point then I scrubbed back in why we placed a large 50 mm Endo Catch bag into the abdomen placed the kidney into the Endo Catch bag closed it I then opened up the extraction site and pulled the kidney out through the extraction site we then closed the anterior fascia with 0 Vicryl look back in the abdomen took about 50 minutes to extract the kidney there was no significant bleeding within the abdomen after 15 minutes of known no pneumoperitoneum. We then closed the camera trocar with a Steven Rodriguez stitch and then we closed the variceal port with a Steven Rodriguez stitch we pulled all the trochars before pull out the trochars we looked at the nephrectomy bed there was again no significant bleeding we lower the pressure to 5 mm there is no bleeding is very happy with hemostasis blood loss was only 400 cc. Urine output during the case was adequate but a little bit low he was getting plenty of hydration. We then closed all the incisions with subcuticular stitches bandages the patient right now is currently being reversed from anesthesia. We sent the kidney for frozen section and it came back positive with renal cell carcinoma. Type of Anesthesia:: General Drains: guerin Estimated Blood Loss (mL): 400 - Admit VTE Documentation VTE Present on Admission: No VTE Mechan Device Prophylaxis: SCD's
[2018-05-06] MEDS: 0.45% Normal Saline 1,000 ML 125 ML IV ×3 (12:12→21:33)
[2018-05-06 18:28] LABS: Hematocrit 38.7 % (40-54); Hemoglobin 12.6 g/dl (13.0-16.5); Mean Corp Hgb Conc 32.6 g/gl (32-36); Mean Corpuscular Hgb 30.6 pg (27.0-32.0); Mean Corpuscular Volume 93.9 fL (80-94); Mean Platelet Vol. 9.9 fl (6.2-12.0); Platelet Count 227 K/mm3 (150-450); RBC Distribution Width CV 13.2 % (11.6-14.6); RBC Distribution Width SD 45.3 fl (35.1-43.9); Red Blood Count 4.12 M/mm3 (4.6-6.2); White Blood Count 10.7 K/mm3 (4.4-11.0)
[2018-05-06 18:30] LABS: Scan Indicated on CBC? Y/N NO
[2018-05-06 18:38] LABS: Anion Gap 11 (5-15); BUN 20 mg/dL (7-18); Calcium,Total 8.4 mg/dL (8.5-10.1); Chloride 103 mmol/L (98-107); Creatinine, Serum 1.05 mg/dL (0.70-1.30); EST Glomerular Filtration Rate 76 mL/min (>60); Est Glom Filt Rate - Afr Amer 91 mL/min (>60); Estimated Creatinine Clearance 80.32 ml/min; Glucose 125 mg/dL (74-106); Potassium 4.5 mmol/L (3.5-5.1); Sodium Level 138 mmol/L (136-145)
[2018-05-06] MEDS: Docusate Sodium 100 MG Capsule PO (21:33)
[2018-05-07 03:29] VITALS: BP 132/65; PULSE 77; RESP 20; TEMP 36.8; O2SAT 95
[2018-05-07] MEDS: 0.45% Normal Saline 1,000 ML 125 ML IV ×3 (05:36→21:38)
[2018-05-07 06:48] LABS: Hematocrit 36.6 % (40-54); Hemoglobin 11.8 g/dl (13.0-16.5); Mean Corp Hgb Conc 32.2 g/gl (32-36); Mean Corpuscular Hgb 30.5 pg (27.0-32.0); Mean Corpuscular Volume 94.6 fL (80-94); Mean Platelet Vol. 10.2 fl (6.2-12.0); Platelet Count 243 K/mm3 (150-450); RBC Distribution Width CV 13.1 % (11.6-14.6); RBC Distribution Width SD 43.5 fl (35.1-43.9); Red Blood Count 3.87 M/mm3 (4.6-6.2); White Blood Count 11.8 K/mm3 (4.4-11.0)
[2018-05-07 06:50] LABS: Scan Indicated on CBC? Y/N NO
[2018-05-07 06:53] LABS: Anion Gap 11 (5-15); BUN 20 mg/dL (7-18); BUN/Creat Ratio 16.1 RATIO (10-20); Calcium,Total 8.6 mg/dL (8.5-10.1); Chloride 103 mmol/L (98-107); Creatinine, Serum 1.24 mg/dL (0.70-1.30); EST Glomerular Filtration Rate 62 mL/min (>60); Est Glom Filt Rate - Afr Amer 76 mL/min (>60); Estimated Creatinine Clearance 68.02 ml/min; Glucose 102 mg/dL (74-106); Sodium Level 138 mmol/L (136-145)
--- NOTE | 2018-05-07 07:30 | PCM.PROGNOTE ---
Subjective: Postoperative day #1 doing well tolerating full liquid diet at this point will DC Gaines ambulate continue with IV fluids gently. - Physical Exam General: Alert, Oriented x3, Cooperative HEENT: Atraumatic, PERRLA, EOMI, Normocephalic Neck: Supple, No JVD, Negative Carotid Bruits Lungs: Clear to auscultation, Normal air movement Cardiovascular: Regular rate, No murmurs Abdomen: Bowel Sounds Present, Soft, Non Tender Extremities: No edema, Capillary Refill Less than 3 Seconds Skin: No rashes, No breakdown Musculoskeletal: No Tenderness to Palpation of Joints or Extremities Neurological: Cranial nerves II-XII grossly intact Psych/Mental Status: Normal Affect, Appropriate Vital Signs Temp Pulse Resp BP Pulse Ox 98.2 F 77 20 H 132/65 H 95 05/07/18 03:29 05/07/18 03:29 05/07/18 03:29 05/07/18 03:29 05/07/18 03:29 Oxygen Flow Rate (L/min) 2 Oxygen Delivery Method Room Air Weight: 109.2 kg Body Mass Index (BMI) 31.7 Intake and Output for Last 24 Hours 05/05/18 05/06/18 05/07/18 23:59 23:59 23:59 Intake Total 5269 / 5269 1904 / 1904 Output Total 800 / 800 2750 / 2750 Balance 4469 / 4469 -846 / -846 Laboratory Tests Past 24 Hrs 05/06/18 05/06/18 05/07/18 18:17 18:17 06:20 WBC 10.7 11.8 H RBC 4.12 L 3.87 L Hgb 12.6 L 11.8 L Hct 38.7 L 36.6 L MCV 93.9 94.6 H MCH 30.6 30.5 MCHC 32.6 32.2 RDW 13.2 13.1 RDW Differential 45.3 H 43.5 Plt Count 227 243 MPV 9.9 10.2 Sodium 138 Potassium 4.5 Chloride 103 Carbon Dioxide 24.0 Anion Gap 11 BUN 20 H Creatinine 1.05 Estim Creat Clear Calc 80.32 Est GFR (MDRD) Af Amer 91 Est GFR (MDRD) Non-Af 76 BUN/Creatinine Ratio 19.0 Glucose 125 H Calcium 8.4 L 05/07/18 06:20 WBC RBC Hgb Hct MCV MCH MCHC RDW RDW Differential Plt Count MPV Sodium 138 Potassium 4.0 Chloride 103 Carbon Dioxide 24.0 Anion Gap 11 BUN 20 H Creatinine 1.24 Estim Creat Clear Calc 68.02 Est GFR (MDRD) Af Amer 76 Est GFR (MDRD) Non-Af 62 BUN/Creatinine Ratio 16.1 Glucose 102 Calcium 8.6 Medical Necessity - Tobacco Use Smoking Status: Never smoker Assessment/Plan 63-year-old male status post radical right radical nephrectomy for renal cell carcinoma doing well advance diet as tolerated continue slow IV fluids DC Gaines home probably tomorrow
[2018-05-07 07:50] VITALS: O2SAT 95
[2018-05-07 08:04] VITALS: BP 123/64; PULSE 67; RESP 14; TEMP 36.8; O2SAT 95
[2018-05-07 08:19] VITALS: O2SAT 92
[2018-05-07] MEDS: Docusate Sodium 100 MG Capsule PO ×2 (09:41→21:39)
[2018-05-07] MEDS: Pantoprazole Sodium 20 MG Tablet PO (09:41)
[2018-05-07] MEDS: Magnesium Hydroxide 30 ML UDC 15 ML PO (09:41)
--- NOTE | 2018-05-07 13:20 | CASEMGMT ---
RN CM [employer] MANAGER CM to room to meet with patient for initial transition planning/care coordination assessment. ELIANA LEE introduced self and role at [facility]. Pt voices understanding and consents to assessment at this time. Pt resting in bed in no distress at this time. Pt is A/O at this time and answers all questions appropriately. Care providers, pharmacy, and demographics verified/updated at this time. PCP: Ke Specialists: James Hayes Pharmacy: [facility] Retail Insurance: [employer] [place]. Living Will/HPOA: Pt does not currently have LW/HCPOA. Informed if he would like to talk to SW while @ [facility] for questions or complete AD paperwork, to let staff know. Also, made aware that he can contact SW as an out-pt and make appt in the future if he decides he would like to talk with someone about this or would like to utilize [facility] social work for advanced directive completion. Given Child Support Specialist Rac card with information and contact number. Living arrangements: Lives with his . Independent. Transportation: Self DME: Denies using any DME and denies needs. HHC/SNF: Has never used HHC or been to a SNF. No needs identified. Pt wishes to return home and states has no concerns with going home at time of discharge. CM to follow for discharge planning/needs. Pt voices no further concerns/needs at this time. Advised pt to ask for CM if any further questions/concerns/needs arise. Voices understanding. PLAN: Home with spousal support and discharge plans in place. Christina HOWELL RN, CM
[2018-05-07 13:53] VITALS: BP 122/64; PULSE 69; RESP 16; TEMP 37.1; O2SAT 95
[2018-05-07 19:55] VITALS: BP 146/86; PULSE 79; RESP 16; TEMP 37.1; O2SAT 93
[2018-05-08 02:08] VITALS: BP 156/81; PULSE 70; RESP 16; TEMP 36.8; O2SAT 92
[2018-05-08] MEDS: 0.45% Normal Saline 1,000 ML 125 ML IV (05:33)
[2018-05-08 06:07] LABS: Anion Gap 7 (5-15); BUN 16 mg/dL (7-18); BUN/Creat Ratio 11.8 RATIO (10-20); Calcium,Total 8.7 mg/dL (8.5-10.1); Chloride 105 mmol/L (98-107); Creatinine, Serum 1.36 mg/dL (0.70-1.30); EST Glomerular Filtration Rate 56 mL/min (>60); Est Glom Filt Rate - Afr Amer 68 mL/min (>60); Estimated Creatinine Clearance 62.01 ml/min; Glucose 104 mg/dL (74-106); Sodium Level 141 mmol/L (136-145)
[2018-05-08 06:22] LABS: Hematocrit 36.8 % (40-54); Hemoglobin 11.9 g/dl (13.0-16.5); Mean Corp Hgb Conc 32.3 g/gl (32-36); Mean Corpuscular Volume 95.8 fL (80-94); Mean Platelet Vol. 10.6 fl (6.2-12.0); Platelet Count 215 K/mm3 (150-450); RBC Distribution Width CV 13.1 % (11.6-14.6); Red Blood Count 3.84 M/mm3 (4.6-6.2); White Blood Count 9.1 K/mm3 (4.4-11.0)
[2018-05-08 06:33] LABS: Scan Indicated on CBC? Y/N NO
--- NOTE | 2018-05-08 08:07 | DCINST_ITS ---
Discharge Diet: Light diet - advance as tolerated Discharge Activity: May not drive while taking narcotic pain medications., May Shower Call your doctor if your incision/area has: Continuous Slow Oozing, Sudden Increased Bleeding, Increased Pain/ Swelling, Increased Redness, Foul Smelling Discharge, Swelling at the incision site Call your doctor if you observe: Fever of 101 or Higher, Inability to have a bowel movement, Uncontrolled pain Suture Line Care: Avoid Pulling/Pushing, Avoid Pinching/Bending Instructions: Discharge Instructions for Nephrectomy Allergies/Adverse Reactions: Allergies No Known Allergies Allergy (Verified 04/27/18 11:13) Medications to take at Discharge NK 04/27/18 Primary Care Physician: Nick Dempsey Chi, MD [Primary Care Provider] - Test Results: Test results from this visit will be discussed in further detail at your follow- up appointment, if applicable. Please Follow Up With: Marvel Ramirez MD When: in 2 weeks, please call to make an appointment.
--- NOTE | 2018-05-08 08:08 | PCM.DC.SUM ---
Discharge Date and Diagnosis Date of Admission: 05/06/18 Date of Discharge: 05/08/18 Hospital Course and Treatment Operations: - - right radical nephrectomy Summary of Care Provided: The patient is a 63 year old male with a 6.5cm right renal mass extending deep into the hilum of the kidney and out towards the fat. under went a right radical nephrectomy, postoperative day #1 his diet was advanced to regular diet Gaines catheter was removed postoperative day #2 doing well passing flatus belly is nice and soft incisions are clean and intact will be discharged on postoperative day #2 in good condition regular diet and pain medicine and stool softeners to home. - Physical Exam General: Alert, Oriented x3, Cooperative HEENT: Atraumatic, PERRLA, EOMI, Normocephalic Neck: Supple, No JVD, Negative Carotid Bruits Lungs: Clear to auscultation, Normal air movement Cardiovascular: Regular rate, No murmurs Abdomen: Bowel Sounds Present, Soft, Non Tender Extremities: No edema, Capillary Refill Less than 3 Seconds Skin: No rashes, No breakdown Musculoskeletal: No Tenderness to Palpation of Joints or Extremities Neurological: Cranial nerves II-XII grossly intact Psych/Mental Status: Normal Affect, Appropriate Vital Signs Temp Pulse Resp BP Pulse Ox 98.3 F 70 16 156/81 H 92 05/08/18 02:08 05/08/18 02:08 05/08/18 02:08 05/08/18 02:08 05/08/18 02:08 Oxygen Flow Rate (L/min) 2 Oxygen Delivery Method Room Air Weight: 109.2 kg Body Mass Index (BMI) 31.7 Intake and Output for Last 24 Hours 05/06/18 05/07/18 05/08/18 23:59 23:59 23:59 Intake Total 5269 / 5269 4239 / 4239 2100 / 2100 Output Total 800 / 800 3700 / 3700 1900 / 1900 Balance 4469 / 4469 539 / 539 200 / 200 Laboratory Tests Past 24 Hrs 05/08/18 05/08/18 05:11 05:11 WBC 9.1 RBC 3.84 L Hgb 11.9 L Hct 36.8 L MCV 95.8 H MCH 31.0 MCHC 32.3 RDW 13.1 RDW Differential 44.0 H Plt Count 215 MPV 10.6 Sodium 141 Potassium 4.0 Chloride 105 Carbon Dioxide 29.0 Anion Gap 7 BUN 16 Creatinine 1.36 H Estim Creat Clear Calc 62.01 Est GFR (MDRD) Af Amer 68 Est GFR (MDRD) Non-Af 56 L BUN/Creatinine Ratio 11.8 Glucose 104 Calcium 8.7 Discharge Diet: Light diet - advance as tolerated Discharge Activity: May not drive while taking narcotic pain medications., May Shower Call your doctor if your incision/area has: Continuous Slow Oozing, Sudden Increased Bleeding, Increased Pain/ Swelling, Increased Redness, Foul Smelling Discharge, Swelling at the incision site Call your doctor if you observe: Fever of 101 or Higher, Inability to have a bowel movement, Uncontrolled pain Suture Line Care: Avoid Pulling/Pushing, Avoid Pinching/Bending Home Medications: Medications to take at Discharge Docusate Sodium [Colace] 100 mg PO BID #20 cap 05/08/18 Hydrocodone/Acetaminophen [Taylor 5-325 Tablet] 1 ea PO Q4H PRN PRN 5 Days #14 tab 05/08/18 Following Prescrptions Were Given to Patient: Hydrocodone/Acetaminophen [Taylor 5-325 Tablet] 1 ea PO Q4H PRN PRN 5 Days #14 tab PRN Reason: Pain Docusate Sodium [Colace] 100 mg PO BID #20 cap Primary Care Physician: Nick Dempsey Chi, MD [Primary Care Provider] - Please Follow Up With: Marvel Ramirez MD When: in 2 weeks, please call to make an appointment. Patient Instructions: Discharge Instructions for Nephrectomy Medical Necessity - Tobacco Use Smoking Status: Never smoker Meaningful Use Info Meaningful Use Diagnoses (Choose all that apply): None applicable
[2018-05-08 09:40] VITALS: BP 134/70; PULSE 78; RESP 18; TEMP 37; O2SAT 95
== END 2018-05-08 10:20 | disposition home or self-care (01) | DRG 658 ==
LOC: MS2 05-07 07:20 → SDC 05-07 07:23
PROVIDERS: Admitting Provider Urology; Family Provider Family Medicine Geriatric Medicine; PCP Family Medicine Geriatric Medicine; Referring Provider Urology; Visit Provider Urology
PROC: 0TT04ZZ Resection of Right Kidney, Percutaneous Endoscopic Approach (ICD-10-PCS; CPT 50543; principal; 2018-05-06 07:10)
DX: C64.1 Malignant neoplasm of right kidney, except renal pelvis (principal); Z92.3 Personal history of irradiation; C61 Malignant neoplasm of prostate; N52.31 Erectile dysfunction following radical prostatectomy
CPT/HCPCS: 36415; 80048; 85025; 85027; 86850; 86900; 86920; 86922; 88307; 88331; 93005; J7120; J2405

== ENCOUNTER → 2018-12-24 | Outpatient (CLI) | payer OTHER, SELFPAY ==
[2018-05-06 13:08] VITALS: BMI 31.7
--- NOTE | 2018-12-24 13:33 | RAD_ITS ---
STUDY: X-RAY CHEST REASON FOR EXAM: Male, 63 years old. History of renal cancer, follow-up lung disease. TECHNIQUE: PA and lateral views of the chest. COMPARISON: None. FINDINGS: The lungs are clear and expanded. There is no demonstrated pleural abnormality. Normal size heart. Normal mediastinum and cheryl. Normal visualized pulmonary arteries. Normal visualized aortic arch and descending thoracic aorta. There are diffuse degenerative changes of the visualized thoracic spine. There is degenerative osteoarthritis of the bilateral shoulders. There is no demonstrated abnormality of the visualized soft tissue structures of the upper abdomen. RAD/Chest PA and Lateral IMPRESSION: No acute cardiopulmonary disease. Electronically Signed: Saba Bolanos MD at 4:16 EDT , Service support ,
[2018-12-24 14:45] LABS: Hematocrit 41.7 % (40-54); Hemoglobin 13.4 g/dL (13.0-16.5); Mean Corp Hgb Conc 32.1 g/dL (32-36); Mean Corpuscular Hgb 30.2 pg (27.0-32.0); Mean Corpuscular Volume 94.1 fL (80-94); Mean Platelet Vol. 10.3 fl (6.2-12.0); Platelet Count 234 K/mm3 (150-450); RBC Distribution Width CV 12.4 % (11.6-14.6); RBC Distribution Width SD 43.4 fl (35.1-43.9); Red Blood Count 4.43 M/mm3 (4.6-6.2); White Blood Count 5.9 K/mm3 (4.4-11.0)
[2018-12-24 15:29] LABS: ALB/GLOB Ratio 1.1 RATIO (0.9-2.4); AST(SGOT) 17 U/L (15-37); Alanine Aminotransfer ALT/SGPT 20 U/L (16-61); Albumin, Serum 3.9 g/dL (3.2-5.0); Alkaline Phosphatase 49 U/L (45-117); Anion Gap 6 (5-15); BUN 24 mg/dL (7-18); BUN/Creat Ratio 20.9 RATIO (10-20); Calcium,Total 9.4 mg/dL (8.5-10.1); Chloride 104 mmol/L (98-107); Creatinine, Serum 1.15 mg/dL (0.70-1.30); EST Glomerular Filtration Rate 68 mL/min (>60); Est Glom Filt Rate - Afr Amer 82 mL/min (>60); Globulin 3.4 g/dL (2.2-4.2); Glucose 88 mg/dL (74-106); PSA,Total- Diagnostic < 0.01 ng/mL (0.0-4.0); Potassium 3.9 mmol/L (3.5-5.1); Protein, Total 7.3 g/dL (6.4-8.2); Sodium Level 142 mmol/L (136-145)
== END | disposition home or self-care (01) ==
PROVIDERS: Family Provider Family Medicine Geriatric Medicine; PCP Family Medicine Geriatric Medicine; Referring Provider Urology; Visit Provider Urology
DX: R97.20 Elevated prostate specific antigen [PSA] (principal); C64.9 Malignant neoplasm of unspecified kidney, except renal pelvis
CPT/HCPCS: 36415; 71046; 80053; 84153; 85027

== ENCOUNTER → 2019-06-18 12:22 | Outpatient (CLI) | payer MEDICARE, BC, SELFPAY ==
[2018-05-06 13:08] VITALS: BMI 31.7
--- NOTE | 2019-06-18 12:33 | CT_ITS ---
STUDY: CT ABDOMEN AND PELVIS WITH CONTRAST REASON FOR EXAM: Male, 64 years old. F/U KIDNEY CA RADIATION DOSAGE (If Supplied By Facility): CTDIvol = ( 18.61 ) mGy, DLP = ( 1156.26 ) mGycm TECHNIQUE: Transaxial images were obtained from the dome of the diaphragm to the symphysis pubis without oral contrast. Oral and amp; IV and amp; 100mL Isovue-300 was administered. Sagittal and coronal images were reconstructed. Individualized dose optimization techniques were used for this CT. COMPARISON: None. FINDINGS: The visualized lung bases are unremarkable. The visualized portions of the heart are within normal limits. Normal liver. There are multiple cholesterol gallstones. Normal spleen. Normal pancreas. Normal bilateral adrenal glands. The right kidney has been removed. Normal left kidney. Normal visualized stomach. Normal small intestine. There are multiple colonic diverticula consistent with diverticulosis. There is non-visualization of the appendix. Normal abdominal aorta. Normal inferior vena cava. Normal retroperitoneum. Normal urinary bladder. The prostate and seminal vesicles have been removed. There is a small umbilical hernia containing fat. There are diffuse degenerative changes of the visualized lumbar spine. CT/Abdomen/Pelvis WITH Contrast IMPRESSION: Multiple cholesterol stones in the gallbladder. There is no evidence of recurrent neoplastic process or metastatic disease. Electronically Signed: Lj Quinn, at 14:38 EDT Tel , Service support ,
--- NOTE | 2019-06-18 12:35 | RAD_ITS ---
STUDY: X-RAY CHEST REASON FOR EXAM: Male, 64 years old. Malignant neoplasm of right kidney. TECHNIQUE: Frontal and lateral views of the chest. COMPARISON: None. FINDINGS: The lungs are clear and expanded. There is no demonstrated pleural abnormality. Normal size heart. Normal mediastinum and cheryl. Normal visualized pulmonary arteries. Normal visualized aortic arch and descending thoracic aorta. There are diffuse degenerative changes of the visualized thoracic spine. There is degenerative osteoarthritis of the bilateral shoulders. There is no demonstrated abnormality of the visualized soft tissue structures of the upper abdomen. RAD/Chest PA and Lateral IMPRESSION: Degenerative changes, as described above. No demonstrated acute cardiopulmonary process. Electronically Signed: Lj Quinn, at 14:34 EDT Tel , Service support ,
[2019-06-18 12:40] LABS: Hematocrit 44.1 % (40-54); Hemoglobin 14.7 g/dL (13.0-16.5); Mean Corp Hgb Conc 33.3 g/dL (32-36); Mean Corpuscular Hgb 29.6 pg (27.0-32.0); Mean Corpuscular Volume 88.9 fL (80-94); Mean Platelet Vol. 9.7 fl (6.2-12.0); Platelet Count 253 K/mm3 (150-450); RBC Distribution Width CV 12.5 % (11.6-14.6); RBC Distribution Width SD 40.5 fl (35.1-43.9); Red Blood Count 4.96 M/mm3 (4.6-6.2); White Blood Count 7.1 K/mm3 (4.4-11.0)
[2019-06-18 12:51] LABS: CREATININE FINGERSTICK 0.9 mg/dL (0.70-1.30)
[2019-06-18 12:58] LABS: Anion Gap 4 (5-15); BUN 22 mg/dL (7-18); BUN/Creat Ratio 19.3 RATIO (10-20); Calcium,Total 9.7 mg/dL (8.5-10.1); Chloride 105 mmol/L (98-107); Creatinine, Serum 1.14 mg/dL (0.70-1.30); EST Glomerular Filtration Rate 69 mL/min (>60); Est Glom Filt Rate - Afr Amer 83 mL/min (>60); Glucose 101 mg/dL (74-106); PSA,Total- Diagnostic < 0.01 ng/mL (0.0-4.0); Potassium 4.4 mmol/L (3.5-5.1); Sodium Level 141 mmol/L (136-145)
== END ==
PROVIDERS: PCP Family Medicine Geriatric Medicine; Referring Provider Urology; Visit Provider Urology
DX: C64.1 Malignant neoplasm of right kidney, except renal pelvis (principal); C61 Malignant neoplasm of prostate
CPT/HCPCS: 36415; 71046; 74177; 80048; 84153; 85027; Q9967

== ENCOUNTER → 2019-11-17 15:32 | Outpatient (CLI) | payer MEDICARE, BC, SELFPAY ==
[2018-05-06 13:08] VITALS: BMI 31.7
[2019-11-17 16:25] LABS: Absolute Lymphocyte Count 1.79 X10^3/uL (0.83-4.51); Absolute Neutrophil Count 3.5 X10^3/uL (2.0-7.7); Basophil# 0.03 X10^3/uL; Basophil% 0.5 % (0-1); Eosinophil# 0.12 X10^3/uL; Hematocrit 39.9 % (40-54); Hemoglobin 13.2 g/dL (13.0-16.5); Lymphocyte # 1.79 X10^3/ul (4.0); Lymphocyte % 30.1 % (19-41); Mean Corp Hgb Conc 33.1 g/dL (32-36); Mean Corpuscular Hgb 29.9 pg (27.0-32.0); Mean Corpuscular Volume 90.3 fL (80-94); Mean Platelet Vol. 10.2 fl (6.2-12.0); Monocyte# 0.52 X10^3/uL; Monocyte% 8.7 % (0-10); NRBC Flagged by Analyzer 0 % (0-5); Neutrophil # 3.48 X10^3/uL (2.7-7.7); Neutrophil % 58.5 % (47-70); Platelet Count 262 K/mm3 (150-450); RBC Distribution Width CV 12.1 % (11.6-14.6); RBC Distribution Width SD 40.4 fl (35.1-43.9); Red Blood Count 4.42 M/mm3 (4.6-6.2)
[2019-11-17 16:48] LABS: ALB/GLOB Ratio 1.1 RATIO (0.9-2.4); AST(SGOT) 21 U/L (15-37); Alanine Aminotransfer ALT/SGPT 21 U/L (16-61); Albumin, Serum 3.9 g/dL (3.2-5.0); Alkaline Phosphatase 53 U/L (45-117); Anion Gap 4 (5-15); BUN 22 mg/dL (7-18); BUN/Creat Ratio 17.7 RATIO (10-20); Calcium,Total 9.2 mg/dL (8.5-10.1); Chloride 105 mmol/L (98-107); Creatinine, Serum 1.24 mg/dL (0.70-1.30); EST Glomerular Filtration Rate 62 mL/min (>60); Est Glom Filt Rate - Afr Amer 75 mL/min (>60); Globulin 3.4 g/dL (2.2-4.2); Glucose 75 mg/dL (74-106); Potassium 3.9 mmol/L (3.5-5.1); Protein, Total 7.3 g/dL (6.4-8.2); Sodium Level 138 mmol/L (136-145); Thyroid Stim Hormone (TSH) 0.92 uIU/mL (0.358-3.74)
== END ==
PROVIDERS: PCP Family Medicine Geriatric Medicine; Visit Provider Family Medicine Geriatric Medicine
DX: E55.9 Vitamin D deficiency, unspecified (principal); I10 Essential (primary) hypertension; Z12.5 Encounter for screening for malignant neoplasm of prostate
CPT/HCPCS: 36415; 80053; 82306; 84153; 84443; 85025; G0103

== ENCOUNTER → 2019-11-26 07:39 | Outpatient (CLI) | payer MEDICARE, BC, SELFPAY ==
[2018-05-06 13:08] VITALS: BMI 31.7
--- NOTE | 2019-11-26 07:41 | CT_ITS ---
STUDY: CT ABDOMEN AND PELVIS WITH CONTRAST REASON FOR EXAM: Male, 64 years old. RUQ PAIN X 4 MONTHS. PRIOR RIGHT KIDNEY CANCER AND PROSTATE CANCER. PROSTATECTOMY AND RIGHT KIDNEY NEPHRECTOMY RADIATION DOSAGE (If Supplied By Facility): CTDIvol = ( 16.30 ) mGy, DLP = ( 1264.23 ) mGycm TECHNIQUE: Transaxial images were obtained from the dome of the diaphragm to the symphysis pubis with oral contrast. Oral and amp; IV Readi-CAT and amp; 75mL Isovue-300 was administered. Sagittal and coronal images were reconstructed. Individualized dose optimization techniques were used for this CT. COMPARISON: Comparison is made with prior study dated 06/18/2019. FINDINGS: Mild degree of increased reticular nodular pattern at the lung bases suggestive of scarring. The visualized portions of the heart are within normal limits. There is decreased attenuation of the liver consistent with steatosis. There are multiple cholesterol gallstones. Normal spleen. Normal pancreas. Normal bilateral adrenal glands. The patient is status post right nephrectomy. Normal left kidney. Normal visualized stomach. Normal small intestine. Moderate amount of fecal material is seen in the colon. The appendix is visualized and appears normal. There is diffuse atherosclerotic calcification of the abdominal aorta, without a demonstrated aneurysm. Normal inferior vena cava. Normal retroperitoneum. Normal urinary bladder. The patient is status post prostatectomy. There is a small umbilical hernia containing fat. There are diffuse degenerative changes of the visualized lumbar spine. CT/Abdomen/Pelvis WITH Contrast IMPRESSION: Stable examination. Multiple cholesterol gallstones. Electronically Signed: Triston Johnston, at 10:17 EDT , Service support ,
== END ==
PROVIDERS: PCP Family Medicine Geriatric Medicine; Referring Provider Family Medicine Geriatric Medicine; Visit Provider Family Medicine Geriatric Medicine
DX: R10.30 Lower abdominal pain, unspecified (principal)
CPT/HCPCS: 74177; Q9967

== ENCOUNTER → 2019-12-08 07:51 | Outpatient (CLI) | payer MEDICARE, BC, SELFPAY ==
[2018-05-06 13:08] VITALS: BMI 31.7
--- NOTE | 2019-12-08 08:00 | US_ITS ---
STUDY: ABDOMINAL ULTRASOUND - RIGHT UPPER QUADRANT REASON FOR VISIT: Male, 64 years old FATTY LIVER -- S/P RT NEPHRECTOMY 2018 DUE TO RENAL CA -- F/U CT DONE 11/26/19 TECHNIQUE: Ultrasound evaluation of the right upper quadrant was performed with real-time and static kaminski-scale imaging. TECHNICAL QUALITY: Adequate. COMPARISON: None. FINDINGS: Liver: The liver is enlarged and measures 20.2 cm. There is increased echogenicity consistent with fatty infiltration. The bile ducts are within normal limits. There is hepatic color flow. The direction of portal flow is hepatopetal. There is no demonstrated mass lesion. Gallbladder: There is a contracted gallbladder. The gallbladder wall measures 3. mm. There is a negative sonographic Mcclelland''s sign. There is no pericholecystic fluid. Contracted stone filled gallbladder. Common Bile Duct (C.B.D.): The common bile duct measures 3. mm. Pancreas: Normal size of the head, body and tail of the pancreas. There is increased echogenicity of the pancreas. There is no demonstrated pancreatic mass or cyst. Right Kidney: The patient is status post right nephrectomy. IMPRESSION: Hepatomegaly and diffuse fatty infiltration of the liver. Contracted stone filled gallbladder. Electronically Signed: Triston Preston, at 8:48 EDT , Service support , INDICATION: Fatty infiltration of the liver. COMPARISON: None. TECHNIQUE: Grayscale imaging was performed of the right upper abdominal quadrant. Hepatic elastography was then performed. Liver stiffness was sampled and shear wave measurements were obtained. METAVIR score was calculated. FINDINGS: Aorta: The aorta is normal. IVC: The IVC is normal. Pancreas: Visualized portions of pancreas are unremarkable. Liver: Measures 20.1 cm. Liver shows increased echogenicity in keeping with diffuse fatty infiltration. No masses identified. Gallbladder: Contracted stone filled gallbladder. Common bile duct: Measures 3.8 mm. No intraductal stones identified. Right kidney: The patient is status post right nephrectomy. ELASTOGRAPHY: Mean: 2.4 m/s kPa: 18.3 US/Abdomen Limited IMPRESSION: 1. Increased hepatic echotexture in keeping with steatosis vs diffuse liver disease. 2. METAVIR score is F3 -- F 4, in keeping with liver fibrosis stage of tube. Electronically Signed: Triston Johnston, at 8:54 EDT , Service support ,
== END ==
PROVIDERS: PCP Family Medicine Geriatric Medicine; Referring Provider Family Medicine Geriatric Medicine; Visit Provider Family Medicine Geriatric Medicine
DX: K76.0 Fatty (change of) liver, not elsewhere classified (principal)
CPT/HCPCS: 76705; 76981

== ENCOUNTER → 2019-12-21 12:22 | Outpatient (CLI) | payer MEDICARE, BC, SELFPAY ==
[2018-05-06 13:08] VITALS: BMI 31.7
--- NOTE | 2019-12-21 12:23 | NM_ITS ---
CLINICAL: 64-year-old male with reported history of right upper quadrant abdominal pain and documented cholelithiasis. RADIONUCLIDE HEPATOBILIARY SCINTIGRAPHY COMPARISON: CT of the abdomen-pelvis report 11/26/2019, abdominal ultrasound report 12/08/2019 FINDINGS: Following the intravenous administration of 5.5 mCi of 99m Tc Mebrofenin, hepatobiliary images reveal: 1. Relatively prompt and homogeneous radiopharmaceutical concentration is noted by a normal sized liver. No parenchymal defects are identified. 2. Gallbladder activity is identified at 15 minutes post radiopharmaceutical administration. 3. Small intestinal tract is observed at 10 minutes following tracer injection. 4. Washout of the radiopharmaceutical by the hepatic parenchyma appears qualitatively normal. Cholecystokinin (0.02 ug/kg) was administered intravenously over a 30-minute period. The post CCK gallbladder ejection fraction calculated at 20 minutes following Cholecystokinin administration was noted to be < 5 % (normal greater than 35%). There is scintigraphic evidence of post cholecystokinin duodenal-gastric reflux. IA/Hepatobilliary Img w/Pharm Int IMPRESSION: 1. ABNORMAL 99m Tc Mebrofenin hepatobiliary imaging examination with Cholecystokinin. A. A gallbladder ejection fraction calculated to be less than 35% following the administration of Cholecystokinin is consistent with the presence of functional hepatobiliary disease (gallbladder and/or sphincter of Oddi dyskinesia) and/or organic hepatobiliary disease (chronic acalculous cholecystitis and/or cystic duct syndrome) in patients with intermediate to high pretest probabilities of hepatobiliary illness. (Stefania Sierra et al, Journal of Nuclear Medicine 32:1695, 1990). B. There is scintigraphic evidence of post CCK duodenal-gastric reflux. (Karissa et al, Nucl Med Christine Mamie Press pg. 35, 1980). Electronically Signed: Leo Duarte DO at 22:45 EDT Tel , Service support ,
== END ==
PROVIDERS: PCP Family Medicine Geriatric Medicine; Referring Provider Family Medicine Geriatric Medicine; Visit Provider Family Medicine Geriatric Medicine
DX: K80.20 Calculus of gallbladder without cholecystitis without obstruction (principal)
CPT/HCPCS: 78227; A9537; J2805

== ENCOUNTER 2020-01-13 09:32 | Day surgery (SDC) | payer MEDICARE, BC, SELFPAY ==
[2019-12-28 14:05] VITALS: BMI 29.2
--- NOTE | 2020-01-07 09:09 | EKG12_ITS ---
Test Reason : PRE OP Blood Pressure : / mmHG Vent. Rate : 057 BPM Atrial Rate : 174 BPM P-R Int : 218 ms QRS Dur : 106 ms QT Int : 426 ms P-R-T Axes : 050 070 040 degrees QTc Int : 414 ms Sinus bradycardia Abnormal ECG Confirmed by GABRIELA MAGALLANES, GARRETT ([id number]), news copy editor STEPHANIE GONZALEZ ([id number]) on 01/10/2020 12:05:24 PM Referred By: Hill Griffith Confirmed By:GARRETT OCHOA MD
[2020-01-07 09:32] LABS: Hematocrit 42.7 % (40-54); Hemoglobin 13.9 g/dL (13.0-16.5); Mean Corp Hgb Conc 32.6 g/dL (32-36); Mean Corpuscular Hgb 30.4 pg (27.0-32.0); Mean Corpuscular Volume 93.4 fL (80-94); Mean Platelet Vol. 10.3 fl (6.2-12.0); Platelet Count 229 K/mm3 (150-450); RBC Distribution Width CV 12.4 % (11.6-14.6); RBC Distribution Width SD 42.2 fl (35.1-43.9); Red Blood Count 4.57 M/mm3 (4.6-6.2); White Blood Count 5.3 K/mm3 (4.4-11.0)
[2020-01-07 10:01] LABS: Anion Gap 1 (5-15); BUN 21 mg/dL (7-18); BUN/Creat Ratio 17.2 RATIO (10-20); Calcium,Total 9.5 mg/dL (8.5-10.1); Chloride 108 mmol/L (98-107); Creatinine, Serum 1.22 mg/dL (0.70-1.30); EST Glomerular Filtration Rate 63 mL/min (>60); Est Glom Filt Rate - Afr Amer 77 mL/min (>60); Glucose 62 mg/dL (74-106); Potassium 4.4 mmol/L (3.5-5.1); Sodium Level 141 mmol/L (136-145)
[2020-01-13 09:57] VITALS: BP 131/66; PULSE 48; RESP 16; TEMP 36.5; O2SAT 98; BMI 29.4
[2020-01-13] MEDS: Lactated Ringers 1,000 ML 100 ML IV ×2 (10:10→12:46)
--- NOTE | 2020-01-13 10:54 | HP.PCM_ITS ---
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 Hill Griffith MD) Smoking Status: Never smoker alcohol intake: never HPI HPI HPI: EDITH ORTIZ, is a 64 M who presents to the office today for surgical consultation regarding suspected gallbladder disease. The patient is referred by Dr. Dempsey and a written copy of my surgical consult recommendations will return to him. 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 He has been having problems with nonspecific right scapular pain. Also some discomfort low in the right lower quadrant. His history that was notable for in 2009 he had a prostatectomy. Apparently the right side was closely addition he had radiation treatment per Dr. Quintero. 2017 he had a right nephrectomy done by Dr Ramirez as well as for right kidney cancer felt to be unrelated to the prostate cancer. He denies fever chills or sweats or cough or shortness of breath. In addition he has had a remote appendectomy. As noted below he had a CT scan performed November 26, 2019. Small umbilical hernia with fat noted. Mild amount of stool in the colon. Steatosis of liver with multiple cholesterol gallstones. Then December 08, 2019 had a gallbladder ultrasound showing hepatomegaly with diffuse fatty change and a contracted stone filled gallbladder. In December 20 had a hepatobiliary scan demonstrating an ejection fraction of less than 5%. The gallbladder however was visualized. Suspicion is that he has symptomatic chronic cholecystitis cholelithiasis. He had laboratory November 16 demonstrating a normal white blood cell count of 6000 hemoglobin 13.2 hematocrit 39.9 platelet count 262,000. BUN 22 creatinine 1.25. At that time liver function tests were normal. His last colonoscopy was 10 years ago. He is scheduled to see Dr. Tony Hatch next week for consultation regarding a follow-up screening exam. He has no personal history of colon polyps or colon cancer RUN DATE: 12/28/19 [facility], DEPARTMENT OF LABORATORIES PAGE 1 RUN TIME: 0550 Specimen Inquiry [address], [place], [place], [id number] PATIENT: EDITH ORTIZ LOC: POLAB3 U #: [id number] : 1955 AGE/SX: 64/M FACILITY: [facility] ROOM: RE11/17/[address]: Dr. Nick Dempsey MD STATUS:REG CL BED: DIS: ~ SPEC #: [id number] GIOVANNA: 11/17/19 STATUS: COMP REQ #: [id number] RECD: 11/17/[address]: Dr. Nick Dempsey MD ENTERED: 11/17/[address]: ~ Test Result Flag Adult Reference Range COMP METABOLIC GLU 75 74-106 mg/dL Please note revised GLUCOSE reference range effective 04/04/2017. BUN 22 H 7-18 mg/dL CREAT,SERUM 1.24 0.70-1.30 mg/dL The validity of the calculated GFR & GFRAA in patients over 70 years has not been determined. Clinical correlation is essential. EST GFR 62 >60 mL/min Non- GFR Calc EST GFR - AA 75 >60 mL/min GFR Calc BUN/CRE 17.7 10-20 RATIO T PROT 7.3 6.4-8.2 g/dL ALB 3.9 3.2-5.0 g/dL GLOB 3.4 2.2-4.2 g/dL A/G 1.1 0.9-2.4 RATIO CA,Total 9.2 8.5-10.1 mg/dL AST 21 15-37 U/L ALK P 53 45-117 U/L ALT 21 16-61 U/L T BILI 1.00 0.20-1.00 mg/dL For patients on eltrombopag therapy, use of Dimension Isabella TBIL is not recommended. NA 138 136-145 mmol/L Potassium 3.9 3.5-5.1 mmol/L CL 105 98-107 mmol/L CO2 29.0 21.0-32.0 mmol/L GAP 4 L 5-15 TSH 0.92 0.358-3.74 uIU/mL [facility] Imaging Services [address] [place] [address] Abdomen/Pelvis WITH Contrast MR#: [id number] Name: EDITH ORTIZ #:[id number] : 5M 64 From: Triston Johnston MD PCP:Dr. Nick Dempsey MD Status:REG CLI Study:Abdomen/Pelvis WITH Contrast Date of Exam:11/26/19 Exam#[id number] Ordering Dr: Nick Dempsey MD STUDY: CT ABDOMEN AND PELVIS WITH CONTRAST REASON FOR EXAM: Male, 64 years old. RUQ PAIN X 4 MONTHS. PRIOR RIGHT KIDNEY CANCER AND PROSTATE CANCER. PROSTATECTOMY AND RIGHT KIDNEY NEPHRECTOMY RADIATION DOSAGE (If Supplied By Facility): CTDIvol = ( 16.30 ) mGy, DLP = ( 1264.23 ) mGycm TECHNIQUE: Transaxial images were obtained from the dome of the diaphragm to the symphysis pubis with oral contrast. Oral and amp; IV Readi-CAT and amp; 75mL Isovue-300 was administered. Sagittal and coronal images were reconstructed. Individualized dose optimization techniques were used for this CT. COMPARISON: Comparison is made with prior study dated 06/18/2019. FINDINGS: Mild degree of increased reticular nodular pattern at the lung bases suggestive of scarring. The visualized portions of the heart are within normal limits. There is decreased attenuation of the liver consistent with steatosis. There are multiple cholesterol gallstones. Normal spleen. Normal pancreas. Normal bilateral adrenal glands. The patient is status post right nephrectomy. Normal left kidney. Normal visualized stomach. Normal small intestine. Moderate amount of fecal material is seen in the colon. The appendix is visualized and appears normal. There is diffuse atherosclerotic calcification of the abdominal aorta, without a demonstrated aneurysm. Normal inferior vena cava. Normal retroperitoneum. Normal urinary bladder. The patient is status post prostatectomy. There is a small umbilical hernia containing fat. There are diffuse degenerative changes of the visualized lumbar spine. CT/Abdomen/Pelvis WITH Contrast IMPRESSION: Stable examination. Multiple cholesterol gallstones. Electronically Signed: Triston Johnston, at 10:17 EDT , Service support , [facility] Imaging Services [address] [place] [address] Abdomen Limited MR#: [id number] Name: EDITH ORTIZ #:[id number] : 1955M 64 From: Triston Johnston MD PCP:Dr. Nick Dempsey MD Status:REG CLI Study:Abdomen Limited Date of Exam:12/08/19 Exam#[id number] Ordering Dr: Nick Dempsey MD STUDY: ABDOMINAL ULTRASOUND - RIGHT UPPER QUADRANT REASON FOR VISIT: Male, 64 years old FATTY LIVER -- S/P RT NEPHRECTOMY 2017 DUE TO RENAL CA -- F/U CT DONE 11/26/19 TECHNIQUE: Ultrasound evaluation of the right upper quadrant was performed with real-time and static kaminski-scale imaging. TECHNICAL QUALITY: Adequate. COMPARISON: None. FINDINGS: Liver: The liver is enlarged and measures 20.2 cm. There is increased echogenicity consistent with fatty infiltration. The bile ducts are within normal limits. There is hepatic color flow. The direction of portal flow is hepatopetal. There is no demonstrated mass lesion. Gallbladder: There is a contracted gallbladder. The gallbladder wall measures 3. mm. There is a negative sonographic Mcclelland''s sign. There is no pericholecystic fluid. Contracted stone filled gallbladder. Common Bile Duct (C.B.D.): The common bile duct measures 3. mm. Pancreas: Normal size of the head, body and tail of the pancreas. There is increased echogenicity of the pancreas. There is no demonstrated pancreatic mass or cyst. Right Kidney: The patient is status post right nephrectomy. IMPRESSION: Hepatomegaly and diffuse fatty infiltration of the liver. Contracted stone filled gallbladder. Electronically Signed: Triston Preston, at 8:48 EDT , Service support , INDICATION: Fatty infiltration of the liver. COMPARISON: None. TECHNIQUE: Grayscale imaging was performed of the right upper abdominal quadrant. Hepatic elastography was then performed. Liver stiffness was sampled and shear wave measurements were obtained. METAVIR score was calculated. FINDINGS: Aorta: The aorta is normal. IVC: The IVC is normal. Pancreas: Visualized portions of pancreas are unremarkable. Liver: Measures 20.1 cm. Liver shows increased echogenicity in keeping with diffuse fatty infiltration. No masses identified. Gallbladder: Contracted stone filled gallbladder. Common bile duct: Measures 3.8 mm. No intraductal stones identified. Right kidney: The patient is status post right nephrectomy. ELASTOGRAPHY: Mean: 2.4 m/s kPa: 18.3 US/Abdomen Limited IMPRESSION: 1. Increased hepatic echotexture in keeping with steatosis vs diffuse liver disease. 2. METAVIR score is F3 -- F 4, in keeping with liver fibrosis stage of tube. Electronically Signed: Triston Preston, at 8:54 EDT , Service support , Hepatobiliary Scan Nuclear Medicine [facility] Imaging Services [address] [place] [address] Hepatobilliary Img w/Pharm Int MR#: [id number] Name: EDITH ORTIZ #:[id number] : 1955M 64 From: Leo Duarte DO PCP:Dr. Nick Dempsey MD Status:REG CLI Study:Hepatobilliary Img w/Pharm Int Date of Exam:12/21/19 Exam#[id number] Ordering Dr: Nick Dempsey MD CLINICAL: 64-year-old male with reported history of right upper quadrant abdominal pain and documented cholelithiasis. RADIONUCLIDE HEPATOBILIARY SCINTIGRAPHY COMPARISON: CT of the abdomen-pelvis report 11/26/2019, abdominal ultrasound report 12/08/2019 FINDINGS: Following the intravenous administration of 5.5 mCi of 99m Tc Mebrofenin, hepatobiliary images reveal: 1. Relatively prompt and homogeneous radiopharmaceutical concentration is noted by a normal sized liver. No parenchymal defects are identified. 2. Gallbladder activity is identified at 15 minutes post radiopharmaceutical administration. 3. Small intestinal tract is observed at 10 minutes following tracer injection. 4. Washout of the radiopharmaceutical by the hepatic parenchyma appears qualitatively normal. Cholecystokinin (0.02 ug/kg) was administered intravenously over a 30-minute period. The post CCK gallbladder ejection fraction calculated at 20 minutes following Cholecystokinin administration was noted to be < 5 % (normal greater than 35%). There is scintigraphic evidence of post cholecystokinin duodenal-gastric reflux. NM/Hepatobilliary Img w/Pharm Int IMPRESSION: 1. ABNORMAL 99m Tc Mebrofenin hepatobiliary imaging examination with Cholecystokinin. A. A gallbladder ejection fraction calculated to be less than 35% following the administration of Cholecystokinin is consistent with the presence of functional hepatobiliary disease (gallbladder and/or sphincter of Oddi dyskinesia) and/or organic hepatobiliary disease (chronic acalculous cholecystitis and/or cystic duct syndrome) in patients with intermediate to high pretest probabilities of hepatobiliary illness. (Stefania Sierra et al, Journal of Nuclear Medicine 32:1695, 1990). B. There is scintigraphic evidence of post CCK duodenal-gastric reflux. (Karissa et al, Nucl Med Christine Mamie Press pg. 35, 1980). Electronically Signed: Leo Duarte DO at 22:45 EDT Tel , Service support , HPI HPI HPI: EDITH ORTIZ is a 64 M who presents to the office today for ROS General General: Yes fatigue; no weight change, appetite, colon cancer, breast cancer or weakness HEENT HEENT: No difficulty swallowing, eye injury, eye surgery, swollen glands or hoarseness Endo Endocrine: No thyroid disease, diabetes mellitus, thyroid cancer, Hair loss, heat intolerance or cold intolerance Skin Skin: No rash or changing moles Breast Breast: No left breast lump, right breast lump, nipple discharge, breast pain, abnormal mammogram, abnormal US or breast enlargement Musc Musculoskeletal: No back problems, arthritis, rheumatoid arthritis, gout or joint pain Cardio Cardiovascular: No murmur, pacemaker, heart disease, atrial fibrillation, high blood pressure, heart attack, heart stent, palpitations, shortness of breat with exertion or chest pain Psych Psychiatric: No depression, anxiety or hearing voices Resp Respiratory: No shortness of breath, No sleep apnea, No cough, No COPD, No asthma, No emphysema, No wheezing Gastro Gastrointestinal: No abdominal pain, No nausea or vomiting, No diarrhea, No constipation, No blood in stool, No acid reflux, No hemorrhoids, No ulcers, Yes gallbladder problem, No black,tarry stools Tommy Hematologic: No blood thinners, No blood disorders, No bleeding, No anemia, No blood clots Neuro Neurologic: No system reviewed and no additional complaints, except as docu, No as per HPI, No abnormal walking, No abnormal hearing, No abnormal movements, No abnormal speech, No behavioral changes, No burning sensations, No confusion, No seizure-like activity, No unsteadiness, No dizziness, No localized weakness, No frequent falls, No headache(s), No lack of coordination, No loss of vision, No memory loss, No numbness, No other visual disturbances, No radiating pain, No restless legs, No sensory deficit, No fainting, No tingling, No tremor(s), No weakness, No other Exam Const General: cooperative, healthy appearing, comfortable, no acute distress Nutritional Appearance: average body habitus Orientation: alert, awake [facility] Head: normal to inspection Eyes General: appearance normal, both eyes and all related structures Chest Breast Palpation: No nipple discharge Resp Effort & Inspection: normal respiratory effort Auscultation: clear to auscultation bilaterally Cardio Rate: regular rate Rhythm: regular rhythm Heart Sounds: no murmurs GI Palpation: soft, no hepatosplenomegaly Auscultation: normal bowel sounds Other: Well-healed transverse low right lower quadrant appendectomy incision. Well-healed much larger slightly more superior transverse right lower quadrant nephrectomy incision. Small nontender umbilical hernia Other: Groin areas are solid and intact. I do not demonstrate an incisional hernia. He points to the area of the medial aspect of his nephrectomy incision but I cannot demonstrate a defect Skin General: no rashes or lesions noted Neuro General: alert, awake Cognition: normal cognition Extrem General: no calf tenderness Psych Affect: normal affect Assessment & Plan Problems 1. Calculus of gallbladder with chronic cholecystitis without obstruction K80.10 Plan 64-year-old gentleman signs and symptoms consistent with chronic cholecystitis cholelithiasis. I recommend to him a laparoscopic cholecystectomy with selective cholangiography. He has a small umbilical hernia. He has had a previous appendectomy. He has had a previous nephrectomy. He has had a previous prostatectomy and radiation treatment. He is aware that he is at higher risk for intervention. He has had an opportunity to ask and have questions answered. We will schedule procedure at his discretion. He is aware of COVID-19 pandemic and slowly increasing local incidence. I appreciate the opportunity of assisting with his surgical care. We will schedule and proceed at his discretion. Copy: Dr. Ke Griffith M.D., F.A.C.S. Coding Level of Care Code 05873 Diagnoses Calculus of gallbladder with chronic cholecystitis without obstruction K80.10 ??Cholelithiasis location: gallbladder ??Biliary obstruction: without biliary obstruction I have re-examined the patient. There are no clinical changes since date of exam. Procedure Criteria Procedure Type: Elective COVID Risk Discussion: The surgeon/proceduralist and patient have discussed in detail the risk of exposure to and/or potential harm posed by the COVID-19 virus with having a surgery/procedure at this time versus the risk of delaying the surgery/proced ure. It is not possible to know either the risk of delaying the surgery or procedure or chance of getting an infection with perfect accuracy, but a joint decision was made between the patient and the surgeon/proceduralist to proceed at this time with the scheduled surgery/procedure as indicated on the consent form.
--- NOTE | 2020-01-13 11:30 | RAD_ITS ---
STUDY: INTRAOPERATIVE CHOLANGIOGRAM. REASON FOR EXAM: Male, 64 years old. IOC. Cholecystectomy. 139 FL SPOTS FLUOROSCOPY TIME (if supplied): ( 21 seconds ) minutes/seconds TECHNIQUE: An intraoperative Cholangiogram was performed by the surgeon. Imaging was submitted. COMPARISON: None. FINDINGS: The visualized intrahepatic and extrahepatic biliary ducts are unremarkable. Free flow of contrast into the duodenum. RAD/Cholangiogram/ O R,Initial IMPRESSION: Unremarkable intraoperative cholangiogram. Electronically Signed: Triston Johnston, at 13:36 EST , Service support ,
--- NOTE | 2020-01-13 11:30 | GALL_PTH ---
PATIENT: EDITH ORTIZ [place] [facility] [place][id number] AGE/SX: 64/M ROOM: RE01/13/[address]: Dr. Hill Griffith MD : 1955 BED: DIS: 01/13/2020 SPEC #: [id number] RECD: 01/13/20 15:03 STATUS: SHAUNA RACIEL #: [id number] GIOVANNA: 01/13/20 11:[address]: Hill Griffith DEPT: SURGICAL PATHOLOGY RECD BY: Shayy Mckenna ENTERED: 01/14/20 07:41 SP TYPE: OMID BERNARD DR: Dr. Nick Dempsey MD Tissues: A - Gallbladder, NOS B - HERNIA Procedures: Surgery Specimen Level II Surgery Specimen Level III HEADER OPERATION: Laparoscopic cholecystectomy with IOC PRE-OP DIAGNOSIS: Calculus of gallbladder with chronic cholecystitis TISSUE SUBMITTED: A - Gallbladder, B - Hernia sac MICROSCOPIC DIAGNOSIS A. Gallbladder, cholecystectomy: Mild chronic cholecystitis and cholelithiasis. B. Hernia sac: A piece of mature adipose tissue, clinically hernia sac. GUDELIA:carlos 01/17/20 MICROSCOPIC DESCRIPTION Slides are reviewed. GROSS DESCRIPTION A - Received is one container labeled with the patient's name and designated gallbladder. The specimen consists of a distended gallbladder measuring 13 x 6 x 4.5 cm. The external surface is pink-nguyen, smooth and glistening for the most part. Focally it is granular, hemorrhagic and contains cautery artifact. The gallbladder contains green-yellow mucoid bile and multiple/numerous multifaceted greenish-yellow to brown stones measuring in aggregate 11 x 10 x 2 cm and 0.1 to 2.5 cm in greatest dimension. The mucosa is bile-stained and without any mass lesions. The gallbladder wall measures up to 0.1 cm in thickness. Rotating Equipment Specialist sections from the gallbladder and the cystic duct are submitted in one cassette. B - Received in fixative is one container labeled with the patient's name and designated hernia sac. The specimen consists of a piece of adipose tissue measuring 3 x 2 x 0.8 cm. No mass lesion is identified. The specimen is bisected and submitted entirely in one cassette. / GUDELIA:carlos 01/14/20 TC:3 CPT: 60233, 39941
[2020-01-13] MEDS: Cefazolin 2 GM in 0.9% Normal Saline 100 ML IV (11:54)
--- NOTE | 2020-01-13 13:23 | OP.PCM_ITS ---
Problem List (1) Cholelithiasis with chronic cholecystitis Status: Chronic Qualifiers: Report of Operation Date of Procedure: 01/13/20 Pre-Operative Diagnosis: Chronic cholecystitis cholelithiasis Post-Operative Diagnosis: Same Surgery/Procedure Performed:: Laparoscopic cholecystectomy with cholangiograms Description of Surgical Findings:: Timeout and informed consent was obtained. 64-year-old gentleman was taken to the operating placed on the table underwent general endotracheal intubation anesthesia. Ancef 2 g were given intravenously. Clean contaminated procedure. Throughout the procedure total 30 cc of local was used. 0.5% Marcaine. Skin sites were preanesthetized. The patient has had a previous robotic prostatectomy and robotic right nephrectomy. I elected to get Visiport access on the right upper quadrant. Local was instilled and using a 0 degree scope I got Visiport access the abdomen was insufflated with CO2 to a pressure of 10 mmH g pressure. Clean trocar injury no evidence of any visceral involvement. Under direct visitation 5 mm was trochars were placed in the right upper quadrant laterally in the epigastric area and then a 12 mm trocar was placed at the umbilicus. At the umbilicus there was a ventral incisional hernia related to the robotic prostatectomy. The patient was placed in reverse Trendelenburg position with right side elevated. There was some mild adhesions of omentum these were bluntly dissected free. The infundibular area of the gallbladder was dissected free. There is a little bit tedious as there were inflammatory changes. Where needed hemostasis obtained with electrocautery and hemolock clips. The critical view was achieved with the cystic duct and cystic artery clearly identified. A hemolock clip was placed on the cystic duct and incision in the cystic duct cholangiogram catheter was inserted through a 14-gauge Angiocath and fluoroscopically control cholangiograms were obtained demons trating normal ductal anatomy and free flow into the small bowel. The cholangiogram catheter was removed and additional hemolock clip was placed on the cystic duct stump prior to transecting it. The cystic artery was clipped proximally with a hemolock clip prior to transecting it. The gallbladder was tediously dissected free from the liver bed. There was adherence but this was carefully dissected free. Hemostasis was achieved with electrocautery. The gallbladder was very enlarged and had multiple stones. It was cleaned and released there was no spillage. The gallbladder was placed in a retrieval bag. The right upper quadrant is irrigated and aspirated free of excess fluid. A piece of fibrillar was placed in the gallbladder bed to further assure hemostasis. The abdomen was allowed to deflate of the CO2 through an antiviral valve. The gallbladder was exited at the umbilicus. Because of the significant size of the gallbladder the vertical skin incision had to be lengthened and the fascial incision had to be lengthened. Upon so doing I could then palpate internally and revealed that at the very superior apex of that incision there is a separate ventral incisional hernia as well. I could not get access to that today for repair. The gallbladder was removed it was very enlarged. The fascial defect hernia at the ventral umbilical area was approximated with multiple [id number]-zl-[id number] sutures of 0 Nurolon. Skin edges approximated opted for Monocryl subdermal stitches. Steri-Strips Telfa OpSite dressings applied. Sponge and instrument and needle counts were reported the surgeon to be correct. Specimens gallbladder and a portion of the ventral incisional umbilical hernia sac. Drains none. Blood loss minimal. He was taken to the recovery room in satisfactory edition without apparent complication. Hill Griffith M.D., F.A.C.S. Anesthesiologist: Aaron Henry
--- NOTE | 2020-01-13 13:29 | DCINST_ITS ---
Discharge Diet: Light diet - advance as tolerated - if you have questions about your diet instructions, please talk to you doctor. Discharge Activity: May Not Drive - for 5 days or while taking narcotic pain medicine. May shower in (days): 1 Lifting Restrictions: 10 pounds Call your doctor if your incision/area has: Continuous Slow Oozing, Sudden Increased Bleeding, Increased Pain/ Swelling, Increased Redness, Foul Smelling Discharge Call your doctor if you observe: Fever of 101 or Higher Suture Line Care: Avoid Pulling/Pushing, Avoid Pinching/Bending Additional Dressing/Incision Instructions:: Change or remove dressing in 4 days. Leave steri-strips in place for 1 week. Allergies/Adverse Reactions: Allergies No Known Allergies Allergy (Verified 01/04/20 08:59) Medications to take at Discharge NK 01/04/20 Primary Care Physician: Nick Dempsey Chi, MD [Primary Care Provider] - Test Results: Test results from this visit will be discussed in further detail at your follow- up appointment, if applicable. Please Follow Up With: Hill Griffith MD - [phone] When: Call to make an appointment to be seen in about 10 days.
[2020-01-13] MEDS: Bupivacaine Mpf 0.5% 30 ML VIAL (13:39)
[2020-01-13 13:45] VITALS: BP 131/66; BP 161/81; PULSE 72; RESP 16; TEMP 36.4; O2SAT 97
[2020-01-13 14:00] VITALS: BP 131/66; BP 141/81; PULSE 55; RESP 16; O2SAT 98
[2020-01-13 14:15] VITALS: BP 131/66; BP 145/69; PULSE 51; RESP 16; TEMP 36.8; O2SAT 99
[2020-01-13 15:11] VITALS: BP 131/66; BP 152/77; PULSE 59; RESP 16; TEMP 36.2; O2SAT 97
== END 2020-01-13 15:31 | disposition home or self-care (01) ==
LOC: SDC 09:33 → AC 09:34
PROVIDERS: PCP Family Medicine Geriatric Medicine; Referring Provider Surgery; Visit Provider Surgery
PROC: (CPT 47610; principal; 2020-01-13 11:10)
DX: K80.10 Calculus of gallbladder with chronic cholecystitis without obstruction (principal); Z85.46 Personal history of malignant neoplasm of prostate; Z85.528 Personal history of other malignant neoplasm of kidney; K43.2 Incisional hernia without obstruction or gangrene; E78.00 Pure hypercholesterolemia, unspecified; R00.1 Bradycardia, unspecified
CPT/HCPCS: 00790; 47563; 49654; 36415; 74300; 76000; 80048; 85027; 87426; 88302; 88304; 93005; C9803; J7120; J2405

== ENCOUNTER → 2020-07-04 11:28 | Outpatient (CLI) | payer MEDICARE, BC, SELFPAY ==
[2020-07-04 12:18] LABS: Hematocrit 41.6 % (40-54); Hemoglobin 13.2 g/dL (13.0-16.5); Mean Corp Hgb Conc 31.7 g/dL (32-36); Mean Corpuscular Hgb 29.5 pg (27.0-32.0); Mean Corpuscular Volume 93.1 fL (80-94); Mean Platelet Vol. 10.3 fl (6.2-12.0); Platelet Count 223 K/mm3 (150-450); RBC Distribution Width CV 12.4 % (11.6-14.6); RBC Distribution Width SD 42.5 fl (35.1-43.9); Red Blood Count 4.47 M/mm3 (4.6-6.2); White Blood Count 5.4 K/mm3 (4.4-11.0)
[2020-07-04 12:56] LABS: ALB/GLOB Ratio 1.1 RATIO (0.9-2.4); AST(SGOT) 23 U/L (15-37); Alanine Aminotransfer ALT/SGPT 19 U/L (16-61); Albumin, Serum 3.7 g/dL (3.2-5.0); Alkaline Phosphatase 56 U/L (45-117); Anion Gap 2 (5-15); BUN 24 mg/dL (7-18); BUN/Creat Ratio 22.6 RATIO (10-20); Calcium,Total 9.2 mg/dL (8.5-10.1); Chloride 106 mmol/L (98-107); Creatinine, Serum 1.06 mg/dL (0.70-1.30); EST Glomerular Filtration Rate 74 mL/min (>60); Est Glom Filt Rate - Afr Amer 90 mL/min (>60); Globulin 3.5 g/dL (2.2-4.2); Glucose 93 mg/dL (74-106); PSA,Total- Diagnostic < 0.01 ng/mL (0.0-4.0); Potassium 4.2 mmol/L (3.5-5.1); Protein, Total 7.2 g/dL (6.4-8.2); Sodium Level 140 mmol/L (136-145)
== END ==
PROVIDERS: PCP Family Medicine Geriatric Medicine; Visit Provider Urology
DX: Z85.46 Personal history of malignant neoplasm of prostate (principal)
CPT/HCPCS: 36415; 80053; 84153; 85027

== ENCOUNTER → 2020-07-06 06:42 | Outpatient (CLI) | payer MEDICARE, BC, SELFPAY ==
--- NOTE | 2020-07-06 06:46 | CT_ITS ---
STUDY: CT ABDOMEN AND PELVIS WITH CONTRAST REASON FOR EXAM: Male, 65 years old. HX OF MALIGNANT NEOPLASM OF PROSTATE RADIATION DOSAGE (If Supplied By Facility): CTDIvol = ( 19.55 ) mGy, DLP = ( 1005.48 ) mGycm TECHNIQUE: Transaxial images were obtained from the dome of the diaphragm to the symphysis pubis without oral contrast. IV 100mL [id number] was administered. Sagittal and coronal images were reconstructed. Individualized dose optimization techniques were used for this CT. COMPARISON: Comparison is made with prior study dated 11/26/2019. FINDINGS: The visualized lung bases are unremarkable. The visualized portions of the heart are within normal limits. Normal liver. The patient is status post cholecystectomy. Normal spleen. Normal pancreas. Normal bilateral adrenal glands. The patient is status post right nephrectomy. Normal left kidney. Normal visualized stomach. Normal small intestine. Normal colon. There are surgical clips in the region of the appendix consistent with a prior appendectomy. There is diffuse atherosclerotic calcification of the abdominal aorta, without a demonstrated aneurysm. Normal inferior vena cava. Normal retroperitoneum. There is diffuse wall thickening of the urinary bladder although the bladder is not completely distended at this time. The patient is status post prostatectomy. There is a small umbilical hernia containing fat. There are diffuse degenerative changes of the visualized lumbar spine. CT/Abdomen/Pelvis WITH Contrast IMPRESSION: Status post cholecystectomy. Status post appendectomy and prostatectomy. Status post right nephrectomy. Electronically Signed: Triston Johnston MD at 8:38 EDT , Service support ,
== END ==
PROVIDERS: PCP Family Medicine Geriatric Medicine; Referring Provider Urology; Visit Provider Urology
DX: Z85.46 Personal history of malignant neoplasm of prostate (principal); Z85.528 Personal history of other malignant neoplasm of kidney
CPT/HCPCS: 74177; Q9967

== ENCOUNTER → 2020-12-07 14:40 | Outpatient (CLI) | payer MEDICARE, BC, SELFPAY ==
[2020-12-07 17:37] LABS: Absolute Lymphocyte Count 1.82 X10^3/uL (0.83-4.51); Absolute Neutrophil Count 5.2 X10^3/uL (2.0-7.7); Basophil# 0.03 X10^3/uL; Basophil% 0.4 % (0-1); Eosinophil# 0.09 X10^3/uL; Eosinophils% 1.2 % (0-5); Hematocrit 39.7 % (40-54); Hemoglobin 12.9 g/dL (13.0-16.5); Lymphocyte # 1.82 X10^3/ul (0.83-4.51); Lymphocyte % 23.5 % (19-41); Mean Corp Hgb Conc 32.5 g/dL (32-36); Mean Corpuscular Hgb 30.3 pg (27.0-32.0); Mean Corpuscular Volume 93.2 fL (80-94); Mean Platelet Vol. 10.6 fl (6.2-12.0); Monocyte% 7.8 % (0-10); NRBC Flagged by Analyzer 0 % (0-5); Neutrophil # 5.18 X10^3/uL (2.7-7.7); Neutrophil % 66.8 % (47-70); Platelet Count 247 K/mm3 (150-450); RBC Distribution Width CV 12.3 % (11.6-14.6); RBC Distribution Width SD 42.1 fl (35.1-43.9); Red Blood Count 4.26 M/mm3 (4.6-6.2); White Blood Count 7.7 K/mm3 (4.4-11.0)
[2020-12-07 18:08] LABS: AST(SGOT) 19 U/L (15-37); Alanine Aminotransfer ALT/SGPT 20 U/L (16-61); Albumin, Serum 3.6 g/dL (3.2-5.0); Alkaline Phosphatase 49 U/L (45-117); Anion Gap 6 (5-15); BUN 24 mg/dL (7-18); BUN/Creat Ratio 18.8 RATIO (10-20); Calcium,Total 9.1 mg/dL (8.5-10.1); Chloride 105 mmol/L (98-107); Creatinine, Serum 1.28 mg/dL (0.70-1.30); EST Glomerular Filtration Rate 60 mL/min (>60); Est Glom Filt Rate - Afr Amer 72 mL/min (>60); Globulin 3.5 g/dL (2.2-4.2); Glucose 123 mg/dL (74-106); PSA,Total - Annual Screen < 0.01 ng/mL (0.00-4.00); Potassium 3.9 mmol/L (3.5-5.1); Protein, Total 7.1 g/dL (6.4-8.2); Sodium Level 141 mmol/L (136-145); Thyroid Stim Hormone (TSH) 0.39 uIU/mL (0.358-3.74)
== END ==
PROVIDERS: PCP Family Medicine Geriatric Medicine; Visit Provider Family Medicine Geriatric Medicine
DX: R53.83 Other fatigue (principal); Z12.5 Encounter for screening for malignant neoplasm of prostate
CPT/HCPCS: 36415; 80053; 84153; 84443; 85025; G0103

== ENCOUNTER → 2021-06-19 | Outpatient (CLI) | payer MEDICARE, BC, SELFPAY ==
--- NOTE | 2021-06-19 09:48 | RAD_ITS ---
STUDY: X-RAY CHEST REASON FOR EXAM: Male, 66 years old. MALIGNANT NEOPLASM OF KIDNEY TECHNIQUE: PA and lateral views of the chest. COMPARISON: June 17, 2021 chest x-ray FINDINGS: The lungs are clear and expanded. There is no demonstrated pleural abnormality. Normal size heart. Normal mediastinum and cheryl. Normal visualized pulmonary arteries. Normal visualized aortic arch and descending thoracic aorta. There are diffuse degenerative changes of the visualized thoracic spine. There is degenerative osteoarthritis of the bilateral shoulders. There is no demonstrated abnormality of the visualized soft tissue structures of the upper abdomen. RAD/Chest PA and Lateral IMPRESSION: Degenerative changes, as described above. No demonstrated acute cardiopulmonary process. Electronically Signed: Lidia Stauffer MD at 4:36 EDT ,
[2021-06-19 10:07] LABS: Hematocrit 43.9 % (40-54); Hemoglobin 14.7 g/dL (13.0-16.5); Mean Corp Hgb Conc 33.5 g/dL (32-36); Mean Corpuscular Hgb 30.4 pg (27.0-32.0); Mean Corpuscular Volume 90.9 fL (80-94); Mean Platelet Vol. 9.8 fl (6.2-12.0); Platelet Count 287 K/mm3 (150-450); RBC Distribution Width CV 12.1 % (11.6-14.6); RBC Distribution Width SD 40.2 fl (35.1-43.9); Red Blood Count 4.83 M/mm3 (4.6-6.2); White Blood Count 6.1 K/mm3 (4.4-11.0)
[2021-06-19 10:43] LABS: ALB/GLOB Ratio 1.1 RATIO (0.9-2.4); AST(SGOT) 21 U/L (15-37); Alanine Aminotransfer ALT/SGPT 25 U/L (16-61); Albumin, Serum 3.8 g/dL (3.2-5.0); Alkaline Phosphatase 59 U/L (45-117); Anion Gap 4 (5-15); BUN 18 mg/dL (7-18); BUN/Creat Ratio 16.1 RATIO (10-20); Calcium,Total 9.1 mg/dL (8.5-10.1); Chloride 104 mmol/L (98-107); Creatinine, Serum 1.12 mg/dL (0.70-1.30); EST Glomerular Filtration Rate 70 mL/min (>60); Est Glom Filt Rate - Afr Amer 84 mL/min (>60); Globulin 3.5 g/dL (2.2-4.2); Glucose 99 mg/dL (74-106); PSA,Total- Diagnostic < 0.01 ng/mL (0.0-4.0); Potassium 4.3 mmol/L (3.5-5.1); Protein, Total 7.3 g/dL (6.4-8.2); Sodium Level 140 mmol/L (136-145)
== END | disposition home or self-care (01) ==
LOC: LAB 09:33
PROVIDERS: PCP Family Medicine Geriatric Medicine; Referring Provider Urology; Visit Provider Urology
DX: Z85.46 Personal history of malignant neoplasm of prostate (principal); Z85.528 Personal history of other malignant neoplasm of kidney
CPT/HCPCS: 36415; 71046; 80053; 84153; 85027

== ENCOUNTER → 2021-12-10 | Outpatient (CLI) | payer MEDICARE, BC, SELFPAY ==
[2021-12-10 17:04] LABS: Absolute Lymphocyte Count 2.12 X10^3/uL (0.83-4.51); Absolute Neutrophil Count 4.4 X10^3/uL (2.0-7.7); Basophil# 0.06 X10^3/uL; Basophil% 0.8 % (0-1); Eosinophil# 0.22 X10^3/uL; Hematocrit 43.8 % (40-54); Hemoglobin 14.3 g/dL (13.0-16.5); Lymphocyte # 2.12 X10^3/ul (0.83-4.51); Lymphocyte % 28.8 % (19-41); Mean Corp Hgb Conc 32.6 g/dL (32-36); Mean Corpuscular Hgb 29.9 pg (27.0-32.0); Mean Corpuscular Volume 91.6 fL (80-94); Mean Platelet Vol. 10.7 fl (6.2-12.0); Monocyte# 0.52 X10^3/uL; Monocyte% 7.1 % (0-10); NRBC Flagged by Analyzer 0 % (0-5); Neutrophil # 4.42 X10^3/uL (2.7-7.7); Neutrophil % 59.9 % (47-70); Platelet Count 273 K/mm3 (150-450); RBC Distribution Width CV 12.1 % (11.6-14.6); RBC Distribution Width SD 40.9 fl (35.1-43.9); Red Blood Count 4.78 M/mm3 (4.6-6.2); White Blood Count 7.4 K/mm3 (4.4-11.0)
[2021-12-10 17:29] LABS: Vitamin D,25 Hydroxy 37.2 ng/mL
[2021-12-10 17:40] LABS: AST(SGOT) 20 U/L (15-37); Alanine Aminotransfer ALT/SGPT 25 U/L (16-61); Albumin, Serum 3.8 g/dL (3.2-5.0); Alkaline Phosphatase 55 U/L (45-117); Anion Gap 5 (5-15); BUN 21 mg/dL (7-18); BUN/Creat Ratio 17.6 RATIO (10-20); Calcium,Total 9.4 mg/dL (8.5-10.1); Chloride 105 mmol/L (98-107); Creatinine, Serum 1.19 mg/dL (0.70-1.30); EST Glomerular Filtration Rate 65 mL/min (>60); Est Glom Filt Rate - Afr Amer 78 mL/min (>60); Globulin 3.7 g/dL (2.2-4.2); Glucose 108 mg/dL (74-106); Protein, Total 7.5 g/dL (6.4-8.2); Sodium Level 141 mmol/L (136-145); Thyroid Stim Hormone (TSH) 0.81 uIU/mL (0.358-3.74)
== END | disposition home or self-care (01) ==
LOC: POLAB3 12:38
PROVIDERS: PCP Family Medicine Geriatric Medicine; Visit Provider Family Medicine Geriatric Medicine
DX: E55.9 Vitamin D deficiency, unspecified (principal); I10 Essential (primary) hypertension; Z12.5 Encounter for screening for malignant neoplasm of prostate
CPT/HCPCS: 36415; 80053; 82306; 84443; 85025

== ENCOUNTER → 2021-12-27 | Outpatient (CLI) | payer MEDICARE, BC, SELFPAY ==
--- NOTE | 2021-12-27 10:00 | US_ITS ---
STUDY: ABDOMINAL ULTRASOUND - RIGHT UPPER QUADRANT REASON FOR VISIT: Male, 66 years old STEATOSIS OF LIVER TECHNIQUE: Ultrasound evaluation of the right upper quadrant was performed with real-time and static kaminski-scale imaging. TECHNICAL QUALITY: Limited. Examination limited by bowel gas. COMPARISON: Comparison is made with prior study dated 12/08/2019. FINDINGS: Liver: The liver measures 16.7 cm. There is increased echogenicity consistent with fatty infiltration. The bile ducts are within normal limits. There is hepatic color flow. The direction of portal flow is hepatopetal. There is no demonstrated mass lesion. Gallbladder: The patient is status post cholecystectomy. Common Bile Duct (C.B.D.): The common bile duct measures 4 mm. Pancreas: There is nonvisualization of the pancreas due to overlying bowel gas. Right Kidney: Status post right nephrectomy. US/Abdomen Limited IMPRESSION: Fatty infiltration of the liver. Status post cholecystectomy. Electronically Signed: Triston Johnston MD at 14:09 EDT ,
--- NOTE | 2021-12-27 10:00 | US_ITS ---
STUDY: ABDOMINAL ULTRASOUND - ELASTOGRAPHY REASON FOR VISIT: Male, 66 years old. Fatty infiltration of the liver. TECHNIQUE: Liver stiffness measurements were obtained on a [employer] RS 85 ultrasound machine using a CA 1-7 probe following the SRU guidelines. 3 measurements were obtained using a 2-D-SWE method. The IQR/M was 19% suggesting a quality data set. TECHNICAL QUALITY: Adequate. COMPARISON: Comparison is made with prior study done earlier today. FINDINGS: Liver: Fatty infiltration of the liver. Median liver stiffness measured 8.2 kPa. US/Elastography Parenchyma/Organ IMPRESSION: Liver stiffness measures 8.2 kPa compatible with F2-F3 (Mild to moderate liver fibrosis) Metavir score. Electronically Signed: Triston Johnston MD at 14:18 EDT ,
== END | disposition home or self-care (01) ==
LOC: US 09:56
PROVIDERS: PCP Family Medicine Geriatric Medicine; Referring Provider Family Medicine Geriatric Medicine; Visit Provider Family Medicine Geriatric Medicine
DX: K76.0 Fatty (change of) liver, not elsewhere classified (principal)
CPT/HCPCS: 76705; 76981

== ENCOUNTER → 2022-07-11 | Outpatient (CLI) | payer MEDICARE, BC, SELFPAY ==
[2022-07-11 13:14] LABS: AST(SGOT) 18 U/L (15-37); Alanine Aminotransfer ALT/SGPT 18 U/L (16-61); Albumin, Serum 3.6 g/dL (3.2-5.0); Alkaline Phosphatase 56 U/L (45-117); Anion Gap 3 (5-15); BUN 20 mg/dL (7-18); Chloride 107 mmol/L (98-107); Creatinine, Serum 1.11 mg/dL (0.70-1.30); EST Glomerular Filtration Rate 70 mL/min (>60); Est Glom Filt Rate - Afr Amer 85 mL/min (>60); Globulin 3.5 g/dL (2.2-4.2); Glucose 90 mg/dL (74-106); PSA,Total- Diagnostic < 0.01 ng/mL (0.0-4.0); Potassium 4.1 mmol/L (3.5-5.1); Protein, Total 7.1 g/dL (6.4-8.2); Sodium Level 140 mmol/L (136-145)
== END | disposition home or self-care (01) ==
PROVIDERS: PCP Family Medicine Geriatric Medicine; Referring Provider Urology; Visit Provider Urology
DX: C61 Malignant neoplasm of prostate (principal)
CPT/HCPCS: 36415; 80053; 84153

== ENCOUNTER → 2022-07-18 | Outpatient (CLI) | payer MEDICARE, BC, SELFPAY ==
--- NOTE | 2022-07-18 10:14 | RAD_ITS ---
INDICATION: KIDNEY CA EXAMINATION/TECHNIQUE: X-RAY - XR Chest 2 Views COMPARISON: June 19, 2021. FINDINGS: LINES/DEVICES: None. LUNGS: No consolidation, edema or effusion. No pneumothorax. MEDIASTINUM AND CARDIOVASCULAR STRUCTURES: Cardiac silhouette not enlarged. Central airways and mediastinal contour are unremarkable. BONES AND SOFT TISSUES: End of changes of the mid and lower thoracic spine. Stable exam. RAD/Chest PA and Lateral IMPRESSION: No radiographic evidence of acute cardiopulmonary disease. Electronically Signed: Morgan Douglas MD, [place] at 18:29 EDT ,
== END | disposition home or self-care (01) ==
LOC: RAD 09:36
PROVIDERS: PCP Family Medicine Geriatric Medicine; Referring Provider Urology; Visit Provider Urology
DX: C61 Malignant neoplasm of prostate (principal); C64.1 Malignant neoplasm of right kidney, except renal pelvis
CPT/HCPCS: 71046

== ENCOUNTER → 2022-12-12 | Outpatient (CLI) | payer MEDICARE, BC, SELFPAY ==
[2022-12-12 17:39] LABS: Absolute Lymphocyte Count 2.38 X10^3/uL (0.83-4.51); Absolute Neutrophil Count 2.9 X10^3/uL (2.0-7.7); Basophil# 0.04 X10^3/uL; Basophil% 0.7 % (0-1); Eosinophil# 0.12 X10^3/uL; Hemoglobin 13.8 g/dL (13.0-16.5); Lymphocyte # 2.38 X10^3/ul (0.83-4.51); Mean Corp Hgb Conc 32.1 g/dL (32-36); Mean Corpuscular Hgb 30.3 pg (27.0-32.0); Mean Corpuscular Volume 94.3 fL (80-94); Monocyte# 0.49 X10^3/uL; Monocyte% 8.2 % (0-10); NRBC Flagged by Analyzer 0 % (0-5); Neutrophil # 2.91 X10^3/uL (2.7-7.7); Neutrophil % 48.9 % (47-70); Platelet Count 270 K/mm3 (150-450); RBC Distribution Width SD 44.7 fl (35.1-43.9); Red Blood Count 4.56 M/mm3 (4.6-6.2)
[2022-12-12 17:55] LABS: Vitamin D,25 Hydroxy 35.7 ng/mL
[2022-12-12 17:59] LABS: AST(SGOT) 21 U/L (15-37); Alanine Aminotransfer ALT/SGPT 27 U/L (16-61); Albumin, Serum 3.8 g/dL (3.2-5.0); Alkaline Phosphatase 56 U/L (45-117); Anion Gap 4 (5-15); BUN 23 mg/dL (7-18); BUN/Creat Ratio 23.5 RATIO (10-20); Calcium,Total 9.1 mg/dL (8.5-10.1); Chloride 104 mmol/L (98-107); Creatinine, Serum 0.98 mg/dL (0.70-1.30); EST Glomerular Filtration Rate 81 mL/min (>60); Est Glom Filt Rate - Afr Amer 98 mL/min (>60); Globulin 3.8 g/dL (2.2-4.2); Glucose 90 mg/dL (74-106); PSA,Total - Annual Screen < 0.01 ng/mL (0.00-4.00); Potassium 4.2 mmol/L (3.5-5.1); Protein, Total 7.6 g/dL (6.4-8.2); Sodium Level 139 mmol/L (136-145); Thyroid Stim Hormone (TSH) 1.01 uIU/mL (0.358-3.74)
== END | disposition home or self-care (01) ==
LOC: POLAB3 09:46
PROVIDERS: PCP Family Medicine Geriatric Medicine; Visit Provider Family Medicine Geriatric Medicine
DX: I10 Essential (primary) hypertension (principal); E55.9 Vitamin D deficiency, unspecified; Z12.5 Encounter for screening for malignant neoplasm of prostate
CPT/HCPCS: 36415; 80053; 82306; 84153; 84443; 85025; G0103

== ENCOUNTER → 2022-12-26 | Outpatient (CLI) | payer MEDICARE, BC, SELFPAY ==
--- NOTE | 2022-12-26 08:19 | US_ITS ---
STUDY: ABDOMINAL ULTRASOUND - RIGHT UPPER QUADRANT; ELASTOGRAPHY REASON FOR VISIT: Male, 67 years old. Fatty infiltration of the liver. Prior right nephrectomy. TECHNIQUE: Ultrasound evaluation of the right upper quadrant was performed with real-time and static kaminski-scale imaging. Point quantification shear wave elastography was performed ([employer]). TECHNICAL QUALITY: Adequate. COMPARISON: Comparison is made with prior examination December 27, 2021. FINDINGS: Liver: The liver is mildly enlarged and measures 18.9 cm. There is increased echogenicity consistent with fatty infiltration. The bile ducts are within normal limits. There is hepatic color flow. The direction of portal flow is hepatopetal. There is no demonstrated mass lesion. Median liver stiffness measured 8.5 kPa. Gallbladder: The patient is status post cholecystectomy. Common Bile Duct (C.B.D.): The common bile duct measures 3.4 mm. Pancreas: There is increased echogenicity of the pancreas. There is no demonstrated pancreatic mass or cyst. Right Kidney: The patient is status post right nephrectomy for US/ABD Limited w/ Elastography IMPRESSION: 1. Liver stiffness measures 8.5 kPa compatible with F2-F3 (Mild to moderate liver fibrosis) Metavir score. Electronically Signed: Triston Johnston MD at 15:09 EDT ,
== END | disposition home or self-care (01) ==
LOC: US 08:19
PROVIDERS: PCP Family Medicine Geriatric Medicine; Referring Provider Family Medicine Geriatric Medicine; Visit Provider Family Medicine Geriatric Medicine
DX: K76.0 Fatty (change of) liver, not elsewhere classified (principal)
CPT/HCPCS: 76705; 76981

== ENCOUNTER → 2023-07-22 | Outpatient (CLI) | payer MEDICARE, BC, SELFPAY ==
--- NOTE | 2023-07-22 09:25 | RAD_ITS ---
STUDY: X-RAY CHEST REASON FOR EXAM: Male, 68 years old. Renal carcinoma. Follow-up. TECHNIQUE: Frontal and lateral views of the chest on 3 images. COMPARISON: July 18, 2022 FINDINGS: Stable hyperinflation with scattered healed parenchymal granulomatous calcifications. There is no demonstrated pleural abnormality. Normal size heart. Normal mediastinum and cheryl. Normal visualized pulmonary arteries. Aortic tortuosity. Diffuse thoracic spondylosis with osteopenia, unchanged. Normal visualized ribs, clavicles, and shoulders. abnormality of the visualized soft tissue structures of the upper abdomen. RAD/Chest PA and Lateral IMPRESSION: Stable chest with no acute superimposed finding. Electronically Signed: Raymond Jackson MD at 10:05 EDT ,
[2023-07-22 10:21] LABS: PSA,Total- Diagnostic < 0.01 ng/mL (0.0-4.0)
== END | disposition home or self-care (01) ==
LOC: LAB 08:53
PROVIDERS: PCP Family Medicine Geriatric Medicine; Visit Provider Urology
DX: C61 Malignant neoplasm of prostate (principal)
CPT/HCPCS: 36415; 71046; 84153

== ENCOUNTER → 2023-08-01 | Outpatient (CLI) | payer MEDICARE, BC, SELFPAY ==
--- NOTE | 2023-08-01 13:58 | CT_ITS ---
STUDY: CT ABDOMEN AND PELVIS WITH AND WITHOUT CONTRAST REASON FOR EXAM: Male, 68 years old. MALIGNANT NEOPLASM OF RIGHT KIDNEY EXCEPT RENAL PELVIS. The patient is status post right nephrectomy and prostatectomy. RADIATION DOSAGE (If Supplied By Facility): CTDIvol = ( 16.95 ) mGy, DLP = ( 2399.73 ) mGycm TECHNIQUE: Transaxial images were obtained from the dome of the diaphragm to the symphysis pubis without oral contrast. [id number] 100ML was administered. Sagittal and coronal images were reconstructed. Individualized dose optimization techniques were used for this CT. COMPARISON: Comparison is made with prior study dated July 06, 2020. FINDINGS: Minimal linear scarring at the lung bases. The visualized portions of the heart are within normal limits. Normal liver. The patient is status post cholecystectomy. Normal spleen. Normal pancreas. Normal bilateral adrenal glands. The patient is status post right nephrectomy. Normal left kidney. Normal visualized stomach. Normal small intestine. Normal colon. There are surgical clips in the region of the appendix consistent with a prior appendectomy. There is scattered atherosclerotic calcification of the abdominal aorta, without a demonstrated aneurysm. Normal inferior vena cava. Normal retroperitoneum. Diffuse bladder wall thickening. The patient is status post prostatectomy. There is a small umbilical hernia containing fat. There are degenerative changes of the visualized lumbar spine. Degenerative changes of the sacroiliac joints. CT/CT Abd/Pelvis W/WO Contrast IMPRESSION: Status post right nephrectomy and cholecystectomy. Status post prostatectomy. Diffuse bladder wall thickening. Electronically Signed: Triston Johnston MD at 14:32 EDT ,
[2023-08-01 14:22] LABS: CREATININE FINGERSTICK 1.1 mg/dL (0.70-1.30); EGFR FINGERSTICK > 60.0000 mL/min (>60)
== END | disposition home or self-care (01) ==
PROVIDERS: PCP Family Medicine Geriatric Medicine; Referring Provider Urology; Visit Provider Urology
DX: C64.1 Malignant neoplasm of right kidney, except renal pelvis (principal)
CPT/HCPCS: 74178; Q9967

== ENCOUNTER → 2023-12-16 | Outpatient (CLI) | payer MEDICARE, BC, SELFPAY ==
[2023-12-16 14:50] LABS: Absolute Lymphocyte Count 2.47 X10^3/uL (0.83-4.51); Absolute Neutrophil Count 2.9 X10^3/uL (2.0-7.7); Basophil# 0.03 X10^3/uL; Basophil% 0.5 % (0-1); Eosinophil# 0.13 X10^3/uL; Eosinophils% 2.1 % (0-5); Hematocrit 42.4 % (40-54); Hemoglobin 13.8 g/dL (13.0-16.5); Lymphocyte # 2.47 X10^3/ul (0.83-4.51); Lymphocyte % 40.7 % (19-41); Mean Corp Hgb Conc 32.5 g/dL (32-36); Mean Corpuscular Hgb 30.3 pg (27.0-32.0); Mean Corpuscular Volume 93.2 fL (80-94); Monocyte# 0.54 X10^3/uL; Monocyte% 8.9 % (0-10); NRBC Flagged by Analyzer 0 % (0-5); Neutrophil # 2.89 X10^3/uL (2.7-7.7); Neutrophil % 47.6 % (47-70); Platelet Count 253 K/mm3 (150-450); RBC Distribution Width CV 12.4 % (11.6-14.6); RBC Distribution Width SD 42.6 fl (35.1-43.9); Red Blood Count 4.55 M/mm3 (4.6-6.2); White Blood Count 6.1 K/mm3 (4.4-11.0)
[2023-12-16 15:29] LABS: ALB/GLOB Ratio 1.1 RATIO (0.9-2.4); AST(SGOT) 17 U/L (15-37); Alanine Aminotransfer ALT/SGPT 17 U/L (16-61); Albumin, Serum 3.9 g/dL (3.2-5.0); Alkaline Phosphatase 52 U/L (45-117); Anion Gap 2 (5-15); BUN 19 mg/dL (7-18); BUN/Creat Ratio 17.6 RATIO (10-20); Calcium,Total 9.7 mg/dL (8.5-10.1); Chloride 105 mmol/L (98-107); Creatinine, Serum 1.08 mg/dL (0.70-1.30); EST Glomerular Filtration Rate 72 mL/min (>60); Est Glom Filt Rate - Afr Amer 87 mL/min (>60); Globulin 3.7 g/dL (2.2-4.2); Glucose 91 mg/dL (74-106); Potassium 4.6 mmol/L (3.5-5.1); Protein, Total 7.6 g/dL (6.4-8.2); Sodium Level 138 mmol/L (136-145)
== END | disposition home or self-care (01) ==
LOC: LAB 13:51
PROVIDERS: PCP Family Medicine Geriatric Medicine; Referring Provider Family Medicine Geriatric Medicine; Visit Provider Family Medicine Geriatric Medicine
DX: I10 Essential (primary) hypertension (principal); E55.9 Vitamin D deficiency, unspecified
CPT/HCPCS: 36415; 80053; 82306; 84443; 85025

== ENCOUNTER → 2024-07-27 | Outpatient (CLI) | payer MEDICARE, BC, SELFPAY ==
[2024-07-27 11:59] LABS: PSA,Total- Diagnostic < 0.02 ng/mL (0.00-4.00)
== END | disposition home or self-care (01) ==
LOC: LAB 09:06
PROVIDERS: PCP Family Medicine Geriatric Medicine; Referring Provider Urology; Visit Provider Urology
DX: C61 Malignant neoplasm of prostate (principal)
CPT/HCPCS: 36415; 84153

== ENCOUNTER → 2024-12-16 | Outpatient (CLI) | payer MEDICARE, BC, SELFPAY ==
[2024-12-16 13:24] LABS: Hematocrit 44.7 % (40-54); Hemoglobin 14.6 g/dL (13.0-16.5); Immature Granulocytes Count 0.010 X10^3/uL (0.0-0.0); Mean Corp Hgb Conc 32.7 g/dL (32-36); Mean Corpuscular Volume 91.6 fL (80-94); Mean Platelet Vol. 10.2 fl (6.2-12.0); NRBC Flagged by Analyzer 0 % (0-5); Platelet Count 269 K/mm3 (150-450); RBC Distribution Width CV 12.4 % (11.6-14.6); RBC Distribution Width SD 41.2 fl (35.1-43.9); Red Blood Count 4.88 M/mm3 (4.6-6.2); White Blood Count 6.6 K/mm3 (4.4-11.0)
[2024-12-16 14:11] LABS: AST(SGOT) 26 U/L (<=37); Alanine Aminotransfer ALT/SGPT 14 U/L (<=46); Albumin, Serum 4.4 g/dL (3.4-4.8); Alkaline Phosphatase 58 U/L (40-129); Anion Gap 7 (5-15); BUN 23 mg/dL (4-19); BUN/Creat Ratio 22.3 RATIO (10-20); Calcium,Total 9.8 mg/dL (7.6-11.0); Carbon Dioxide 30.2 mmol/L (21.0-32.0); Chloride 102 mmol/L (98-108); Globulin 2.9 g/dL (2.2-4.2); Glucose 90 mg/dL (70-99); Potassium 4.6 mmol/L (3.3-5.1)
[2024-12-16 14:13] LABS: PSA,Total - Annual Screen < 0.02 ng/mL (0.02-4.00); Vitamin D,25 Hydroxy 32.6 ng/mL (30-100)
[2024-12-16 21:01] LABS: Xtra Tube EP Lab EXTRA TUBE
== END | disposition home or self-care (01) ==
LOC: POLAB3 12:59
PROVIDERS: PCP Family Medicine Geriatric Medicine; Visit Provider Family Medicine Geriatric Medicine
DX: I10 Essential (primary) hypertension (principal); E55.9 Vitamin D deficiency, unspecified; Z12.5 Encounter for screening for malignant neoplasm of prostate
CPT/HCPCS: 36415; 80053; 82306; 84153; 84443; 85025; G0103